=== PATIENT | male | born 1975 | race Caucasian/White ===

== ENCOUNTER 2017-10-05 21:06 | Observation (INO) | payer SELFPAY ==
[2017-10-05 22:08] LABS: BASOPHILS % (AUTO) 0.3 % (0.2-1.0); EOSINOPHILS # (AUTO) 0.1 x10^3/uL (0.0-0.2); EOSINOPHILS % (AUTO) 0.7 % (0.9-2.9); HEMATOCRIT 43.1 % (42.0-54.0); HEMOGLOBIN 15.1 g/dL (13.5-18.0); LYMPHOCYTES # (AUTO) 1.1 X10^3/uL (1.3-2.9); LYMPHOCYTES % (AUTO) 7.3 % (21.0-51.0); MEAN CORPUSCULAR HEMOGLOBIN 29.8 pg (27.0-34.0); MEAN CORPUSCULAR VOLUME 85.1 fL (80.0-100.0); MEAN PLATELET VOLUME 8.1 fL (7.4-11.0); MONOCYTES # (AUTO) 0.5 x10^3/uL (0.3-0.8); MONOCYTES % (AUTO) 3.6 % (0.0-13.0); NEUTROPHILS # (AUTO) 12.8 x10^3/uL (2.2-4.8); NEUTROPHILS % (AUTO) 88.1 % (42.0-75.0); PLATELET COUNT 209 X10^3/uL (150.0-450.0); RED BLOOD COUNT 5.07 X10^6/uL (4.7-6.0); RED CELL DISTRIBUTION WIDTH 12.8 % (11.6-16.5); WHITE BLOOD COUNT 14.5 X10^3/uL (3.6-10.0)
[2017-10-05 22:18] LABS: ALANINE AMINOTRANSFERASE 32 Units/L (12-78); ALBUMIN 4.1 g/dL (3.4-5.0); ALKALINE PHOSPHATASE 99 Units/L (46-116); AMYLASE 24 Units/L (25-115); ASPARTATE AMINO TRANSFERASE 20 Units/L (15-37); BLOOD UREA NITROGEN 19 mg/dL (7-18); CALCIUM 8.3 mg/dL (8.5-10.1); CARBON DIOXIDE 21.6 mmol/L (21-32); CHLORIDE 106 mmol/L (98-107); COR NA(FOR HYPERGLY) 142 mmol/L (136-145); CREATININE 1.32 mg/dL (0.70-1.30); LIPASE 132 Units/L (73-393); SODIUM 141 mmol/L (136-145); TOTAL PROTEIN 7.4 g/dL (6.4-8.2); eGFR BLACK RACES > 60 (>60); eGFR NON BLACK RACES > 60 (>60)
[2017-10-05] MEDS ORDERED: ZOSYN VIAL 3.375 GM IV ONE (22:28)
[2017-10-05] MEDS ORDERED: DEMEROL INJ ONE (22:29)
[2017-10-05] MEDS ORDERED: NS 100 ML IV + SPIKE MINIBAG* 100 ML IV ONE (22:30)
[2017-10-05 22:47] LABS: ERYTHROCYTE SEDIMENTATION RATE 2 MM/HOUR (0-15)
[2017-10-05 22:52] VITALS: BMI 38.5
[2017-10-05] MEDS: NS 1000 ML 1,000 ML IV SCH (22:54)
[2017-10-05] MEDS: DEMEROL INJ IVP PRN (22:55)
[2017-10-05] MEDS: PHENERGAN INJ 25 MG IV PRN (23:04)
[2017-10-05] MEDS: NICOTINE PATCH TD SCH (23:07)
[2017-10-05] MEDS: PROTONIX INJ 40 MG VIAL IVP SCH (23:09)
[2017-10-05] MEDS: PEPCID 20 MG IV PREMIX* 20 MG/50 ML BAG IV SCH (23:12)
[2017-10-05] MEDS ORDERED: NS 100 ML IV 100 ML IV ONE (23:48)
[2017-10-06] MEDS ORDERED: ZOFRAN INJ 4 MG VIAL IVP PRN (00:01)
--- NOTE | 2017-10-06 01:21 | CT ---
CT abdomen and pelvis with contrast Indication: Abdominal pain with nausea and vomiting Technique: Helical images through the abdomen and pelvis after IV contrast. Coronal and sagittal refo rmats provided. Comparison: No recent prior abdomen CT available. Findings: Limited images through the lower chest show prominent heart size. Review of bone windows sh ows spine and pelvis mild degenerative change without destructive osseous lesion. Abdomen: The liver, gallbladder, spleen, pancreas, adrenal glands, stomach and small bowel show no ac agdaagux abnormality. Postsurgical change of the stomach noted. The appendix is normal. Vasculature shows few calcifications. The kidneys are normal. Pelvis: Urinary bladder and rectum are normal. Prostate gland is normal. There is borderline wall thickening of the transverse and right colon. Impression: 1. Mild right colon and transverse colon wall thickening, suggesting mild colitis. 2. Prominent heart size with a few calcifications in the aorta. Reported By:
[2017-10-06] MEDS ORDERED: DEMEROL INJ ONE (03:01)
[2017-10-06] MEDS: DEMEROL INJ IVP PRN ×3 (03:15→20:39)
[2017-10-06 04:50] LABS: BILIRUBIN,URINE NEGATIVE (NEGATIVE); BLOOD/HEMOGLOBIN,URINE NEGATIVE (NEGATIVE); GLUCOSE, URINE NEGATIVE (NEGATIVE); KETONES,URINE NEGATIVE (NEGATIVE); LEUKOCYTE ESTERASE ,URINE NEGATIVE (NEGATIVE); NITRITES,URINE NEGATIVE (NEGATIVE); PH,URINE 6.5 (5.0 - 8.0); PROTEIN,URINE 1+ (NEGATIVE); UROBILINOGEN,URINE 1+ (NORMAL)
[2017-10-06 05:17] LABS: APPEARANCE,URINE CLEAR (CLEAR); COLOR,URINE YELLOW (YELLOW)
[2017-10-06 05:18] LABS: BACTERIA,URINE NEGATIVE /HPF (NEGATIVE); RBC,URINE NONE SEEN /HPF (NONE SEEN); SQUAMOUS EPITHELIAL CELL,UR RARE /HPF (NEGATIVE)
[2017-10-06 05:38] LABS: BASOPHILS % (AUTO) 0.3 % (0.2-1.0); EOSINOPHILS % (AUTO) 0.2 % (0.9-2.9); HEMATOCRIT 39.9 % (42.0-54.0); HEMOGLOBIN 13.9 g/dL (13.5-18.0); LYMPHOCYTES % (AUTO) 8.5 % (21.0-51.0); MEAN CORPUSCULAR HEMOGLOBIN 29.7 pg (27.0-34.0); MEAN CORPUSCULAR VOLUME 85.1 fL (80.0-100.0); MEAN PLATELET VOLUME 8.6 fL (7.4-11.0); MONOCYTES # (AUTO) 0.6 x10^3/uL (0.3-0.8); MONOCYTES % (AUTO) 5.3 % (0.0-13.0); NEUTROPHILS # (AUTO) 9.9 x10^3/uL (2.2-4.8); NEUTROPHILS % (AUTO) 85.7 % (42.0-75.0); PLATELET COUNT 194 X10^3/uL (150.0-450.0); RED BLOOD COUNT 4.68 X10^6/uL (4.7-6.0); WHITE BLOOD COUNT 11.6 X10^3/uL (3.6-10.0)
[2017-10-06 05:54] LABS: ALANINE AMINOTRANSFERASE 28 Units/L (12-78); ALBUMIN 3.5 g/dL (3.4-5.0); ALKALINE PHOSPHATASE 81 Units/L (46-116); ASPARTATE AMINO TRANSFERASE 16 Units/L (15-37); BLOOD UREA NITROGEN 18 mg/dL (7-18); CALCIUM 8.2 mg/dL (8.5-10.1); CARBON DIOXIDE 20.6 mmol/L (21-32); CHLORIDE 107 mmol/L (98-107); COR NA(FOR HYPERGLY) 141 mmol/L (136-145); SODIUM 141 mmol/L (136-145); TOTAL PROTEIN 6.8 g/dL (6.4-8.2); eGFR BLACK RACES > 60 (>60); eGFR NON BLACK RACES > 60 (>60)
[2017-10-06] MEDS ORDERED: DEMEROL INJ IVP ONE (06:04)
[2017-10-06] MEDS: PHENERGAN INJ 25 MG IV PRN ×3 (06:12→20:39)
[2017-10-06] MEDS: NS 1000 ML 1,000 ML IV SCH ×3 (06:24→22:13)
[2017-10-06] MEDS: ZOSYN VIAL 3.375 GM 3.375 GM in NS 100 ML IV + SPIKE MINIBAG* 100 ML IV SCH ×3 (06:25→22:13)
[2017-10-06] MEDS: PEPCID 20 MG IV PREMIX* 20 MG/50 ML BAG IV SCH ×2 (08:27→20:39)
[2017-10-06] MEDS: PROTONIX INJ 40 MG VIAL IVP SCH ×2 (08:28→20:38)
[2017-10-06] MEDS: NICOTINE PATCH TD SCH (08:29)
[2017-10-06] MEDS ORDERED: PATIENT'S HOME MEDICATION (Lisinopril [Lisinopril] 1 TAB) PO SCH (09:00)
[2017-10-06] MEDS: ZESTRIL TAB 10 MG PO SCH (09:33)
--- NOTE | 2017-10-06 10:23 | US ---
History: Abdominal pain and nausea and vomiting Study: Ultrasound of the right upper quadrant of the abdomen Comparison: None Findings: The gallbladder contains some sludge but there is no wall thickening or stone. The common h epatic duct measures 3.1 mm diameter. The liver is normal in size without mass. There is appropriate flow in the hepatic and portal veins. The right kidney measures 10 x 4 x 6 cm without mass or hydronephrosis. There is no free fluid. The IVC and pancreas are obscured by overlying gas. Impression: Some gallbladder sludge but no gallstone. Otherwise unremarkable exam. Reported By:
[2017-10-06] MEDS: SYNTHROID 125 mcg TAB PO SCH (10:31)
[2017-10-06] MEDS ORDERED: FIORICET TAB PO PRN (16:18)
--- NOTE | 2017-10-06 18:15 | DR.CONSULT ---
Consult - Consultation for Day of: Date: 10/06/17 - Chief Complaint Chief Complaint: Abdominal pain. - Allergies Allergies/Adverse Reactions: Allergies Allergy/AdvReac Type Severity Reaction Status Date / Time shellfish derived AdvReac Verified 10/05/17 22:23 - History of Present Illness History of Present Illness: The patient is a 42 year old male who began having right upper quadrant pain yesterday after eating ground beef. The pain was sudden and severe. (+) fever / chills. (+) nausea (-) vomiting. (+) melena. (-) hematemesis / hematochezia. The patient has a history of gastric sleeve performed at [facility]SH approximately 1 year ago. (-) f/h IBD. The patient was admitted to and work-up showed colitis. Today, the pain has resolved but Mr. Bryan reports fever/chills/headache. An abdominal u/s demonstrated sludge without evidence of cholecystitis. - Past Medical History Past Medical History: Dyslipidemia, Hypertension, Hypothyroidism Additional Medical History: KONG - Past Surgical History Surgical History: Ortho Surgery, Thyroidectomy, Weight Loss Surgery (Gastric sleeve), Other (Umbilical hernia repair with mesh) - Family History Family Medical History: Diabetes Mellitus, Coronary Artery Disease, Hypertension - Social History Does patient currently use any type of tobacco product: Yes Have you used tobacco products in the last 12 months: Yes Type of Tobacco Use: Cigarettes Alcohol Use: Occasionally Drug Use: None - Medications Home Medications: Acetaminophen with Codeine [Tylenol w/Codeine #4 (300 mg/60 mg)] 1 tab PO QID [History Confirmed 10/05/17] Levothyroxine Sodium [SYNTHROID 125 mcg *] 1 tab PO DAILY 10/05/17 [History Confirmed 10/05/17] Lisinopril 1 tab PO DAILY 10/05/17 [History Confirmed 10/05/17] - Review of Systems Constitutional: Fever, Chills, Weakness Eyes: No Symptoms Reported ENT: No Symptoms Reported Respiratory: No Symptoms Reported Cardiovascular: No Symptoms Reported Gastrointestinal: Nausea, Abdominal Pain, Melena Genitourinary: No Symptoms Reported Musculoskeletal: No Symptoms Reported Skin: No Symptoms Reported Neurological: No Symptoms Reported - Physical Exam Vital Signs: Temperature 98.6 F Pulse Rate [Right] 83 Respiratory Rate 22 Blood Pressure [Right Arm] 138/83 O2 Sat by Pulse Oximetry 97 Oriented: Normal Eyes: Normal Respiratory: Clear Throughout Cardiovascular: Normal : Normal Auscultation: Bowel Sounds: Increased Palpation: Normal, Other (Well healed laparoscopic and umbilical hernia repair scars.) Tenderness: Normal Skin: Normal Musculoskeletal: Normal Psychiatric: Normal Mood Description: Calm Affect: Normal Speech Pattern: Clear, Appropriate - Plan Plan: 42 year old male with resolving abdominal pain: 1. RUQ pain. Suspect colitis etiology of pain. Improved with bowel rest and antibiotics. (+) leukocystosis with left shift. On Zosyn. Await stool cultures. Continue IV abx. Slowly advance diet. The patient will need outpatient colonoscopy after symptoms improve. GI following. 2. Cholelithiasis. Asymptomatic at this time. NTTP RUQ and (-) Kilgore's sign. (-) DM. Patient reports RUQ intermittently with fatty foods. HIDA not performed due to weight. Recommend elective cholecystectomy if symptoms persist.
[2017-10-06] MEDS ORDERED: NS 1000 ML 1,000 ML IV ONE (18:16)
[2017-10-06 20:58] LABS: STOOL FOR WBC POSITIVE (NEGATIVE)
[2017-10-06 21:14] LABS: CRYPTOSPORIDIUM PARVUM ANTIGEN NEGATIVE (NEGATIVE); GIARDIA LAMBLIA ANTIGEN NEGATIVE (NEGATIVE)
[2017-10-07] MEDS: NS 1000 ML 1,000 ML IV SCH ×3 (02:19→10:11)
[2017-10-07] MEDS: DEMEROL INJ IVP PRN ×3 (02:19→10:11)
[2017-10-07 05:24] LABS: BASOPHILS # (AUTO) 0.1 X10^3/uL (0.0-0.1); BASOPHILS % (AUTO) 0.8 % (0.2-1.0); EOSINOPHILS # (AUTO) 0.1 x10^3/uL (0.0-0.2); EOSINOPHILS % (AUTO) 1.5 % (0.9-2.9); HEMATOCRIT 37.8 % (42.0-54.0); HEMOGLOBIN 13.2 g/dL (13.5-18.0); LYMPHOCYTES # (AUTO) 1.7 X10^3/uL (1.3-2.9); MEAN CORPUSCULAR HEMOGLOBIN 29.7 pg (27.0-34.0); MEAN CORPUSCULAR VOLUME 84.9 fL (80.0-100.0); MEAN PLATELET VOLUME 8.4 fL (7.4-11.0); MONOCYTES # (AUTO) 0.6 x10^3/uL (0.3-0.8); MONOCYTES % (AUTO) 10.6 % (0.0-13.0); NEUTROPHILS # (AUTO) 3.6 x10^3/uL (2.2-4.8); NEUTROPHILS % (AUTO) 59.1 % (42.0-75.0); PLATELET COUNT 169 X10^3/uL (150.0-450.0); RED BLOOD COUNT 4.46 X10^6/uL (4.7-6.0); RED CELL DISTRIBUTION WIDTH 12.8 % (11.6-16.5); WHITE BLOOD COUNT 6.1 X10^3/uL (3.6-10.0)
[2017-10-07 05:31] LABS: ALANINE AMINOTRANSFERASE 22 Units/L (12-78); ALKALINE PHOSPHATASE 67 Units/L (46-116); ASPARTATE AMINO TRANSFERASE 15 Units/L (15-37); BLOOD UREA NITROGEN 12 mg/dL (7-18); CALCIUM 7.9 mg/dL (8.5-10.1); CARBON DIOXIDE 23.3 mmol/L (21-32); CHLORIDE 110 mmol/L (98-107); COR CA(FOR HYPOALB) 8.7 mg/dL (8.5-10.1); CREATININE 1.25 mg/dL (0.70-1.30); SODIUM 143 mmol/L (136-145); TOTAL PROTEIN 6.1 g/dL (6.4-8.2); eGFR BLACK RACES > 60 (>60); eGFR NON BLACK RACES > 60 (>60)
[2017-10-07] MEDS: ZOSYN VIAL 3.375 GM 3.375 GM in NS 100 ML IV + SPIKE MINIBAG* 100 ML IV SCH (05:41)
[2017-10-07] MEDS: PROTONIX INJ 40 MG VIAL IVP SCH (08:02)
[2017-10-07] MEDS: ZESTRIL TAB 10 MG PO SCH (08:02)
[2017-10-07] MEDS: SYNTHROID 125 mcg TAB PO SCH (08:02)
[2017-10-07] MEDS: PEPCID 20 MG IV PREMIX* 20 MG/50 ML BAG IV SCH (08:02)
[2017-10-07] MEDS: NICOTINE PATCH TD SCH (08:04)
--- NOTE | 2017-10-07 08:42 | PCM.PROG ---
Progress Note - Progress Note for Day of Date: 10/07/17 - Subjective Subjective: Complains of body aches / headache. - Past Medical Family Social History Allergies: Allergies shellfish derived Adverse Reaction (Verified 10/05/17 22:23) - Vital Signs and I&O's Vital Signs: Temperature 98.2 F Pulse Rate [Right] 93 Respiratory Rate 18 Blood Pressure [Right Arm] 142/81 O2 Sat by Pulse Oximetry 96 Intake and Output: Intake & Output 10/04/17 10/05/17 10/06/17 10/07/17 11:59 11:59 11:59 11:59 Intake Total 125 3920 Balance 125 3920 - Physical Exam Oriented: Normal Eyes: Normal Cardiovascular: Normal : Normal Auscultation: Bowel Sounds: Increased Tenderness: Normal Skin: Normal Musculoskeletal: Normal Psychiatric: Normal Mood Description: Calm Affect: Normal Speech Pattern: Clear, Appropriate - Laboratory and Diagnostics Result Diagrams: 10/07/17 04:30 10/07/17 04:30 Labs: 10/05/17 21:55 Blood Blood Culture - Preliminary 10/05/17 21:49 Blood Blood Culture - Preliminary 10/06/17 19:39 Stool - Final Laboratory WBC 6.1 X10^3/uL (3.6-10.0) 10/07/17 04:30 RBC 4.46 X10^6/uL (4.7-6.0) L 10/07/17 04:30 Hgb 13.2 g/dL (13.5-18.0) L 10/07/17 04:30 Hct 37.8 % (42.0-54.0) L 10/07/17 04:30 MCV 84.9 fL (80.0-100.0) 10/07/17 04:30 MCH 29.7 pg (27.0-34.0) 10/07/17 04:30 MCHC 35.0 g/dL (33.0-35.0) 10/07/17 04:30 RDW 12.8 % (11.6-16.5) 10/07/17 04:30 Plt Count 169 X10^3/uL (150.0-450.0) 10/07/17 04:30 MPV 8.4 fL (7.4-11.0) 10/07/17 04:30 Neut % (Auto) 59.1 % (42.0-75.0) 10/07/17 04:30 Lymph % (Auto) 28.0 % (21.0-51.0) 10/07/17 04:30 [place] % (Auto) 10.6 % (0.0-13.0) 10/07/17 04:30 Eos % (Auto) 1.5 % (0.9-2.9) 10/07/17 04:30 Baso % (Auto) 0.8 % (0.2-1.0) 10/07/17 04:30 Neut # (Auto) 3.6 x10^3/uL (2.2-4.8) 10/07/17 04:30 Lymph # (Auto) 1.7 X10^3/uL (1.3-2.9) 10/07/17 04:30 [place] # (Auto) 0.6 x10^3/uL (0.3-0.8) 10/07/17 04:30 Eos # (Auto) 0.1 x10^3/uL (0.0-0.2) 10/07/17 04:30 Baso # (Auto) 0.1 X10^3/uL (0.0-0.1) 10/07/17 04:30 Absolute Nucleated RBC 0.1 /100WBC 10/07/17 04:30 ESR 2 MM/HOUR (0-15) 10/05/17 21:49 Sodium 143 mmol/L (136-145) 10/07/17 04:30 Corrected Sodium TNP 10/07/17 04:30 Potassium 3.9 mmol/L (3.5-5.1) 10/07/17 04:30 Chloride 110 mmol/L (98-107) H 10/07/17 04:30 Carbon Dioxide 23.3 mmol/L (21-32) 10/07/17 04:30 BUN 12 mg/dL (7-18) 10/07/17 04:30 Creatinine 1.25 mg/dL (0.70-1.30) 10/07/17 04:30 Est GFR (MDRD) Af Amer > 60 (>60) 10/07/17 04:30 Est GFR (MDRD) Non-Af > 60 (>60) 10/07/17 04:30 Glucose 90 mg/dL (65-99) 10/07/17 04:30 Calcium 7.9 mg/dL (8.5-10.1) L 10/07/17 04:30 Corrected Calcium 8.7 mg/dL (8.5-10.1) 10/07/17 04:30 Total Bilirubin 0.50 mg/dL (0.2-1.0) 10/07/17 04:30 AST 15 Units/L (15-37) 10/07/17 04:30 ALT 22 Units/L (12-78) 10/07/17 04:30 Alkaline Phosphatase 67 Units/L (46-116) 10/07/17 04:30 C-Reactive Protein 28.00 mg/L (0-3.0) H 10/05/17 21:49 Total Protein 6.1 g/dL (6.4-8.2) L 10/07/17 04:30 Albumin 3.0 g/dL (3.4-5.0) L 10/07/17 04:30 Globulin 3.1 g/dL (2.5-4.5) 10/07/17 04:30 Albumin/Globulin Ratio 1.0 Ratio (1.1-2.1) L 10/07/17 04:30 Amylase 24 Units/L (25-115) L 10/05/17 21:49 Lipase 132 Units/L (73-393) 10/05/17 21:49 Specimen Type Clean catch urine 10/06/17 04:28 Urine Color Yellow (YELLOW) 10/06/17 04:28 Urine Appearance Clear (CLEAR) 10/06/17 04:28 Urine pH 6.5 (5.0 - 8.0) 10/06/17 04:28 Ur Specific [place] 1.010 (1.000-1.030) 10/06/17 04:28 Urine Protein 1+ (NEGATIVE) 10/06/17 04:28 Urine Glucose (UA) Negative (NEGATIVE) 10/06/17 04:28 Urine Ketones Negative (NEGATIVE) 10/06/17 04:28 Urine Occult Blood Negative (NEGATIVE) 10/06/17 04:28 Urine Nitrite Negative (NEGATIVE) 10/06/17 04:28 Urine Bilirubin Negative (NEGATIVE) 10/06/17 04:28 Urine Urobilinogen 1+ (NORMAL) 10/06/17 04:28 Ur Leukocyte Esterase Negative (NEGATIVE) 10/06/17 04:28 Urine RBC None seen /HPF (NONE SEEN) 10/06/17 04:28 Urine WBC None seen /HPF (NONE SEEN) 10/06/17 04:28 Ur Squamous Epith Cells Rare /HPF (NEGATIVE) 10/06/17 04:28 Urine Bacteria Negative /HPF (NEGATIVE) 10/06/17 04:28 Ur Culture Indicated? No/not indicated 10/06/17 04:28 Stool Description 50g brn lqd 10/06/17 19:39 Stl Occult Blood (IFOB) Positive (NEGATIVE) A 10/06/17 19:39 Stool for White Cells Positive (NEGATIVE) A 10/06/17 19:39 Stl C. diff Tox B Gene Negative (NEGATIVE) 10/06/17 19:39 Stl C. diff [id number] Negative (NEGATIVE) 10/06/17 19:39 Cryptosporid parvum Ag Negative (NEGATIVE) 10/06/17 19:39 E. histolytica Antigen Negative (NEGATIVE) 10/06/17 19:39 Giardia lamblia Ag Negative (NEGATIVE) 10/06/17 19:39 Influenza Type A (PCR) Negative (NEGATIVE) 10/05/17 22:30 Influenza Type B (PCR) Negative (NEGATIVE) 10/05/17 22:30 - Plan (1) Colitis Status: Acute Narrative Support Text: WBC improved. Abdominal pain resolved. Stool cultures pending. Blood and WBC noted in stool. Plan: Transition to PO antibiotics. Await stool cultures. Adv. diet as tolerated. Needs f/u colonoscopy. GI following.
--- NOTE | 2017-10-07 10:38 | DR.CONSULT ---
Consult - Consultation for Day of: Date: 10/06/17 - Chief Complaint Chief Complaint: Carson referred for RUQ and melena. Patient with complaints of RUQ, N/V and melena - Allergies Allergies/Adverse Reactions: Allergies Allergy/AdvReac Type Severity Reaction Status Date / Time shellfish derived AdvReac Verified 10/05/17 22:23 - History of Present Illness History of Present Illness: Carson is a 72yo male who was referred for RUQ and melena. Patient with complaints of RUQ N/V and melena that started on Tuesday. Patient denies dysphagia, dyspepsia, constipation, diarrhea and hematochezia. Abdomen and pelvis CT with contrast showed Mild right colon and transverse colon wall thickening suggesting mild colitis. Gall bladder US showed sludge in the gall bladder. Patient had gastric sleeve done november of last year. He has never had a colonoscopy or EGD - Past Medical History Past Medical History: Dyslipidemia, Hypertension, Hypothyroidism Additional Medical History: KONG - Past Surgical History Surgical History: Ortho Surgery, Thyroidectomy, Weight Loss Surgery (Gastric sleeve), Other (Umbilical hernia repair with mesh) - Family History Family Medical History: Diabetes Mellitus, Coronary Artery Disease, Hypertension - Social History Does patient currently use any type of tobacco product: Yes Have you used tobacco products in the last 12 months: Yes Type of Tobacco Use: Cigarettes Alcohol Use: Occasionally Drug Use: None - Medications Home Medications: Acetaminophen with Codeine [Tylenol w/Codeine #4 (300 mg/60 mg)] 1 tab PO QID [History Confirmed 10/05/17] Levothyroxine Sodium [SYNTHROID 125 mcg *] 1 tab PO DAILY 10/05/17 [History Confirmed 10/05/17] Lisinopril 1 tab PO DAILY 10/05/17 [History Confirmed 10/05/17] - Review of Systems Constitutional: No Symptoms Reported Eyes: No Symptoms Reported ENT: No Symptoms Reported Respiratory: No Symptoms Reported Cardiovascular: No Symptoms Reported Gastrointestinal: See HPI, Nausea, Vomiting, Abdominal Pain (ruq), Melena Genitourinary: No Symptoms Reported Musculoskeletal: No Symptoms Reported Skin: No Symptoms Reported Neurological: No Symptoms Reported - Physical Exam Vital Signs: Temperature 98.2 F Pulse Rate [Right] 93 Respiratory Rate 18 Blood Pressure [Right Arm] 142/81 O2 Sat by Pulse Oximetry 96 Oriented: Normal Eyes: Normal Ear: Normal Nose: Normal Throat: Normal Respiratory: Clear Throughout Cardiovascular: Normal : Normal Auscultation: Bowel Sounds: Normal Palpation: Normal, Other (no distention). negative: Spleen Enlarged, Liver Enlarged, Mass Pulsatile Tenderness: RUQ Skin: Normal Musculoskeletal: Normal Psychiatric: Normal Mood Description: Calm Affect: Normal Speech Pattern: Clear - Plan Plan: Assessment. 1. N/V, RUQ pain likely gastroenteritis r/o gastric ulcer gastric adenocarcinoma. 2. Melena r/o GI Bleed. Plan. 1. Protonix IV EGD as outpatient. 2. Monitor Hgb protonix IV, hemoccult stool. Plan reviewed with Dr. Vargas
[2017-10-07 12:11] VITALS: BP 122/64
== END 2017-10-07 14:00 | disposition home or self-care (01) ==
LOC: MED/SURG 21:06 → UNDOADMOB 21:06 → MED/SURG 21:40
PROVIDERS: ADMIT Internal Medicine; ATTEND Internal Medicine
DX: R10.11 Right upper quadrant pain (principal); K52.89 Other specified noninfective gastroenteritis and colitis; K92.2 Gastrointestinal hemorrhage, unspecified; Z98.84 Bariatric surgery status
CPT/HCPCS: 36415; 74177; 76705; 80053; 81001; 82150; 82274; 83630; 83690; 85025; 85652; 86140; 87040; 87045; 87328; 87329; 87336; 87427; 87449; 87493; 87502; A4216; A4222; C9113; S0028; G0378; J2175; J2405; J2543; J2550

== ENCOUNTER 2022-02-05 16:29 | Inpatient (IN) ==
[2022-02-05] MEDS ORDERED: TORADOL 30 MG VIAL ONE (16:53)
[2022-02-05] MEDS ORDERED: NS 1,000 ML IV 1,000 ML ONE ×3 (16:53→21:34)
[2022-02-05] MEDS ORDERED: ZOFRAN INJ 4 MG VIAL ONE (16:53)
[2022-02-05] MEDS ORDERED: TORADOL 30 MG VIAL IVP ONE (16:54)
[2022-02-05] MEDS ORDERED: ZOFRAN INJ 4 MG VIAL IVP ONE (16:54)
[2022-02-05] MEDS ORDERED: NS 1,000 ML IV 1,000 ML IV ONE ×2 (16:54→19:06)
[2022-02-05 17:05] LABS: BILIRUBIN,URINE NEGATIVE (NEGATIVE); BLOOD/HEMOGLOBIN,URINE NEGATIVE (NEGATIVE); GLUCOSE, URINE 4+ (NEGATIVE); KETONES,URINE 4+ (NEGATIVE); LEUKOCYTE ESTERASE ,URINE NEGATIVE (NEGATIVE); NITRITES,URINE NEGATIVE (NEGATIVE); PROTEIN,URINE 2+ (NEGATIVE); UROBILINOGEN,URINE NORMAL (NORMAL)
[2022-02-05 17:08] LABS: BASOPHILS % (AUTO) 0.2 % (0.2-1.0); EOSINOPHILS % (AUTO) 0.1 % (0.9-2.9); HEMATOCRIT 41.7 % (42.0-54.0); HEMOGLOBIN 14.1 g/dL (13.5-18.0); LYMPHOCYTES # (AUTO) 1.4 X10^3/uL (1.3-2.9); LYMPHOCYTES % (AUTO) 7.1 % (21.0-51.0); MEAN CORPUSCULAR HEMOGLOBIN 29.2 pg (27.0-34.0); MEAN CORPUSCULAR HGB CONC 33.9 g/dL (33.0-35.0); MEAN CORPUSCULAR VOLUME 85.9 fL (80.0-100.0); MEAN PLATELET VOLUME 8.4 fL (7.4-11.0); MONOCYTES # (AUTO) 2.1 x10^3/uL (0.3-0.8); MONOCYTES % (AUTO) 10.6 % (0.0-13.0); NEUTROPHILS # (AUTO) 16.4 x10^3/uL (2.2-4.8); RED BLOOD COUNT 4.85 X10^6/uL (4.7-6.0); RED CELL DISTRIBUTION WIDTH 14.9 % (11.6-16.5)
[2022-02-05 17:21] LABS: APPEARANCE,URINE SLIGHTLY HAZY (CLEAR); COLOR,URINE YELLOW (YELLOW); RBC,URINE NONE SEEN /HPF (0-3)
[2022-02-05 17:22] LABS: BACTERIA,URINE NEGATIVE /HPF (NEGATIVE); COARSE GRANULAR CASTS,URINE RARE /HPF (NEGATIVE); SQUAMOUS EPITHELIAL CELL,UR RARE /HPF (NEGATIVE)
[2022-02-05 17:24] LABS: ALANINE AMINOTRANSFERASE 26 Units/L (12-78); ALBUMIN 2.6 g/dL (3.4-5.0); ALKALINE PHOSPHATASE 122 Units/L (46-116); ASPARTATE AMINO TRANSFERASE 17 Units/L (15-37); BLOOD UREA NITROGEN 16 mg/dL (7-18); CALCIUM 8.7 mg/dL (8.5-10.1); CARBON DIOXIDE 22.5 mmol/L (21-32); CHLORIDE 92 mmol/L (98-107); COR CA(FOR HYPOALB) 9.8 mg/dL (8.5-10.1); COR NA(FOR HYPERGLY) 133 mmol/L (136-145); CREATININE 1.13 mg/dL (0.70-1.30); SODIUM 126 mmol/L (136-145); TOTAL PROTEIN 6.9 g/dL (6.4-8.2); eGFR NON BLACK RACES > 60 (>60)
--- NOTE | 2022-02-05 17:32 | CT ---
HISTORYPT C/O PAIN INTO THE LEFT LOWER BACK THAT IS CONSTANT STABBING PAINSTUDYABDOMEN/PELVIS W/O CONCOMPARISONNoneTECHNIQUECT of the abdomen and pelvis obtained without IV contrast. Study limited due to lack of IV contrast dose reduction techniques including Automated Exposure Control (AEC) and adjustment of mA and kV were utilized.FINDINGSTrace left-sided effusion and left basilar consolidation versus atelectasis.No acute osseous abnormality.The liver, gallbladder, pancreas, bilateral adrenal glands, and bilateral kidneys demonstrate no acute process. Heterogeneous splenic attenuation and perisplenic edemaNo evidence of bowel obstruction. The appendix is unremarkable.The bladder is unremarkable. No free air or fluid. Nonaneurysmal aorta. Faint scattered vascular calcifications.IMPRESSIONHeterogeneous splenic attenuation with perisplenic edema. Findings may be seen splenic infection or infarct. Recommend correlation with lab values. Contrast CT may be helpful in diagnosis.Trace left pleural effusion and left basilar consolidation versus atelectasis.Electronically signed by: LORA DIEZ (Feb 05, 2022 17:29:58)
--- NOTE | 2022-02-05 17:42 | DR.HYPOGLY ---
HPI Time Seen Time Seen by Provider: 02/05/22 17:26 PCP Primary Care Physician: DESTINY CRAMER Complaint Chief Complaint Doctors Comments: 3 DAY H/O POLYURIA,NAUSEA AND VOMITING AND LEFT LOWER BACK PAIN. RECENTLY BEGAN TREATMENT FOR NIDDM. HAS H/O KIDNEY STONES. Chief Complaint:: PT HAS RECENTLY BEEN DIAGNOSED WITH TYPE 2 DIABETES AND SINCE TUESDAY HIS GLUCOSE HAS BEEN STEADILY RISING. PT STATES THAT BLOOD SUGAR IS >500. PT C/O PAIN INTO THE LEFT LOWER BACK THAT IS CONSTANT STABBING PAIN Self Treatment fo Chief Complaint: PT WAS STARTED ON GLIMEPIRIDE 4MG PO BID AND GLUCOPHAGE 500MG PO HS ON TUESDAY Source History Provided: Patient Mode of Arrival Mode of Arrival: Ambulatory Timing Onset of Chief Complaint: 02/05/22 PMH PMH Past Medical History: Yes Past Medical History: Diabetes and Hypertension Past Surgical History: Yes Surgical History: Ortho Surgery and Thyroidectomy Past Surgical History Comment: GASTRIC SLEEVE Family History History of Family Medical Conditions: Yes Family Medical History: Diabetes Mellitus Social History Does patient currently use any type of tobacco product: Yes Have you used tobacco products in the last 12 months: Yes Type of Tobacco Use: Cigarettes Does any household member use tobacco: No Alcohol Use: None Do you use any recreational Drugs:: No Lives With: Family Lives Where: Home Infectious screening In the last 2 months have you had wt loss of >10#?: NO Have you had fever, night sweats or hemotysis?: No Have you traveled outside the country in the last 6 months?: No Isolation: Standard ROS Review of Systems Constitutional: Other (NAUSEA,VOMITING,POLYURIA AND LEFT LOWER BACK PAIN.) Eyes: No Symptoms Reported ENTM: No Symptoms Reported Respiratoy: No Symptoms Reported Cardiovascular: No Symptoms Reported Gastrointestinal/Abdominal: Abdominal Pain, Nausea and Vomiting Genitourinary: No Symptoms Reported Neurological: No Symptoms Reported Musculoskeletal: Back Pain Integumentary: No Symptoms Reported Hematologic/Lymphatic: No Symptoms Reported Endocrine: Increased Thirst and Other (POLYURIA) Psychiatric: No Symptoms Reported PE Vital Signs Vitals: Temperature 97.7 F Pulse Rate 119 Respiratory Rate 18 Blood Pressure [Right Arm] 122/64 Blood Pressure 146/87 O2 Sat by Pulse Oximetry 95 General Limitations: No Limitations General Appearance: Lethargic and In Distress (MODERATE DISTRESS) Eyes Eye exam: Normal Appearance, PERRL and EOMI Pupils: Regular, Round: Bilateral and Reactive: Bilateral ENT ENT Exam: Normal Exam and Normal Oropharynx Nose Exam: Normal Nose Exam Mouth Exam: Normal Inspection Throat Exam: Normal Inspection Neck Neck Exam: Normal Inspection and Full ROM Chest Chest Inspection: Normal Inspection and Symmetric Chest Wall Rise Respiratory Respiratory Exam: Normal Lung Sounds Bilat Cardiovascular Cardiovascular Exam: Regular Rate and Normal Rhythm Abdominal Exam Abdominal Exam: Normal Inspection, Normal Bowel Sounds and Soft Extremities Extremities Exam: Normal Inspection and Full ROM Back Back Exam: Tenderness (TENDER IN LEFT LOWER BACK) Neurologic Neurological Exam: Alert Patient Oriented To: Person, Place and Time Speech: Fluid Speech Cranial Nerve Exam: EOM Function (II, III, IV, ): Normal, Facial Sensation (V): Normal, Facial Palsy (VII): Normal, Gag reflex (XI): Normal, Spinal Accessory Function (XI): Normal and Tongue Deviation: Normal Psychiatric Psychiatric Exam: Normal Affect and Normal Mood Skin Skin Exam: Warm, Dry and Intact MDM Differential diagnosis Differential diagnosis: Hypoglycemia (HYPERGLYCEMIA.UTI,KIDNEY STONES ,DEHYDRATION) COURSE Treatment Treatment: PATIENT REMAINED RELATIVELY STABLE DURING ER EVALUATION. HAD BLOOD SUGAR OF 398 DURING LAB EVALUATION AND HAC 4+ GLUCOSE AND KETONES IN URINE. HAD [address] WBC ON CBC AND HAD CT OF ABDOMEN AND PELVIS THAT SHOWEDHETEROGENOUS SPLENIC ATTENUATION WITH PERISPLENIC EDEMA. FINDINGS MAY BE SEEN IN SPLENIC INFECTIONS OR INFARCT. THEY SUGGEST THAT CT OF ABDOMEN WITH CONTRAST MIGHT HELP FURTHER DELINIATE ANGELIKA PATIENT IS ALLERGIC TO IV CONTRAST. PATIENT WAS GIVEN 2 LITERS OF NACL BOLUS AND INITIALLY TORADOL 30MG IV FOR PAIN AND THEN 2MG OF MSO4 AND 4MG OF ZOFRAN IV FOR NAUSEA. PATIENT WAS DISCUSSED WITH DR LUDWIG AND SHE ACCEPTED THE PATIENT FOR ADMISSION. THE PATIENT WAS DISCUSSED WITH UTILIZATION REVIEW AND WILL BE ADMITTED INPATIENT. FOR FURTHER EVALUATION OF HYPERGLYCEMIA,LEUCOCYTOSIS AND PERISPLENIC EDEMA. PATIENT WAS ADVISED OF THE INTENT TO ADMIT AND WAS AGREABLE TO THE ADMISSION. PATIENT WAS ALSO GIVEN ZOSYN 3.375GRAMS IV IN ER. ROR Labs Reviewed Laboratory Results Reviewed?: Yes Result Diagrams: 02/05/22 16:49 02/05/22 20:25 Laboratory: WBC 20.0 X10^3/uL (3.6-10.0) H 02/05/22 16:49 RBC 4.85 X10^6/uL (4.7-6.0) 02/05/22 16:49 Hgb 14.1 g/dL (13.5-18.0) 02/05/22 16:49 Hct 41.7 % (42.0-54.0) L 02/05/22 16:49 MCV 85.9 fL (80.0-100.0) 02/05/22 16:49 MCH 29.2 pg (27.0-34.0) 02/05/22 16:49 MCHC 33.9 g/dL (33.0-35.0) 02/05/22 16:49 RDW 14.9 % (11.6-16.5) 02/05/22 16:49 Plt Count 254 X10^3/uL (150.0-450.0) 02/05/22 16:49 MPV 8.4 fL (7.4-11.0) 02/05/22 16:49 Neut % (Auto) 82.0 % (42.0-75.0) H 02/05/22 16:49 Lymph % (Auto) 7.1 % (21.0-51.0) L 02/05/22 16:49 [place] % (Auto) 10.6 % (0.0-13.0) 02/05/22 16:49 Eos % (Auto) 0.1 % (0.9-2.9) L 02/05/22 16:49 Baso % (Auto) 0.2 % (0.2-1.0) 02/05/22 16:49 Neut # (Auto) 16.4 x10^3/uL (2.2-4.8) H 02/05/22 16:49 Lymph # (Auto) 1.4 X10^3/uL (1.3-2.9) 02/05/22 16:49 [place] # (Auto) 2.1 x10^3/uL (0.3-0.8) H 02/05/22 16:49 Eos # (Auto) 0.0 x10^3/uL (0.0-0.2) 02/05/22 16:49 Baso # (Auto) 0.0 X10^3/uL (0.0-0.1) 02/05/22 16:49 Absolute Nucleated RBC 0.0 /100WBC 02/05/22 16:49 Sodium 126 mmol/L (136-145) L 02/05/22 16:49 Corrected Sodium 133 mmol/L (136-145) L 02/05/22 16:49 Potassium 3.8 mmol/L (3.5-5.1) 02/05/22 16:49 Chloride 92 mmol/L (98-107) L 02/05/22 16:49 Carbon Dioxide 22.5 mmol/L (21-32) 02/05/22 16:49 BUN 16 mg/dL (7-18) 02/05/22 16:49 Creatinine 1.13 mg/dL (0.70-1.30) 02/05/22 16:49 Est GFR (MDRD) Af Amer > 60 (>60) 02/05/22 16:49 Est GFR (MDRD) Non-Af > 60 (>60) 02/05/22 16:49 Glucose 408 mg/dL (65-99) H 02/05/22 20:25 POC Glucose (mg/dL) 398 mg/dL (65-99) H 02/05/22 16:39 Lactic Acid 1.3 mmol/L (0.4-2.0) 02/05/22 19:15 Calcium 8.7 mg/dL (8.5-10.1) 02/05/22 16:49 Corrected Calcium 9.8 mg/dL (8.5-10.1) 02/05/22 16:49 Total Bilirubin 0.80 mg/dL (0.2-1.0) 02/05/22 16:49 AST 17 Units/L (15-37) 02/05/22 16:49 ALT 26 Units/L (12-78) 02/05/22 16:49 Alkaline Phosphatase 122 Units/L (46-116) H 02/05/22 16:49 Total Protein 6.9 g/dL (6.4-8.2) 02/05/22 16:49 Albumin 2.6 g/dL (3.4-5.0) L 02/05/22 16:49 Globulin 4.3 g/dL (2.5-4.5) 02/05/22 16:49 Albumin/Globulin Ratio 0.6 Ratio (1.1-2.1) L 02/05/22 16:49 Specimen Type Clean catch urine 02/05/22 17:00 Urine Color Yellow (YELLOW) 02/05/22 17:00 Urine Appearance Slightly hazy (CLEAR) 02/05/22 17:00 Urine pH 6.0 (5.0 - 8.0) 02/05/22 17:00 Ur Specific [place] 1.015 (1.000-1.030) 02/05/22 17:00 Urine Protein 2+ (NEGATIVE) 02/05/22 17:00 Urine Glucose (UA) 4+ (NEGATIVE) 02/05/22 17:00 Urine Ketones 4+ (NEGATIVE) 02/05/22 17:00 Urine Blood Negative (NEGATIVE) 02/05/22 17:00 Urine Nitrite Negative (NEGATIVE) 02/05/22 17:00 Urine Bilirubin Negative (NEGATIVE) 02/05/22 17:00 Urine Urobilinogen Normal (NORMAL) 02/05/22 17:00 Ur Leukocyte Esterase Negative (NEGATIVE) 02/05/22 17:00 Urine RBC None seen /HPF (0-3) 02/05/22 17:00 Urine WBC 0-2 /HPF (0-5) 02/05/22 17:00 Ur Squamous Epith Cells Rare /HPF (NEGATIVE) 02/05/22 17:00 Urine Bacteria Negative /HPF (NEGATIVE) 02/05/22 17:00 Coarse Granular Casts Rare /HPF (NEGATIVE) 02/05/22 17:00 Urine Mucus Rare /HPF (NEGATIVE) 02/05/22 17:00 Ur Culture Indicated? No/not indicated 02/05/22 17:00 Acetone, Semi-Quant Small (NEGATIVE) H 02/05/22 16:49 Opioid Opioid Risk Tool Age (Valeriy box if 16-45): No History of Preadolescent Sexual Abuse: No Total: 0 Total Score Risk Category: Low Risk Copyright: Patrick LOZANO predicting aberrant behaviors Discharge Plan Diagnosis Discharge Problem: Leucocytosis, Hyperglycemia, Dehydration, Splenic disorder Discharge Plan Patient Disposition: ADMITTED INPATIENT Condition: Stable Health Concerns: Post Hospitalization: new medications and changes needed to prevent readmission or further decline. Pt educated and given instructions on all concerns. Plan of Treatment: Continue with present treatment and follow up plan. Pt is to keep follow up geremias ointment as instructed and take medications as ordered. Orders to Discharge Patient Discharge Orders: Transfer (Routine); Ordered 02/05/22 Ordered By: Warner Horace Follow ups/Referrals Follow ups/Referrals: JANIS GIRALDO [Primary Care Provider] - 3 days Instructions Stand Alone Forms: Precautions for COVID19, [facility], Patient Portal, Social Distancing
[2022-02-05] MEDS ORDERED: MORPHINE SULFATE INJ 2 MG INJ IVP ONE (20:16)
[2022-02-05] MEDS ORDERED: MORPHINE SULFATE INJ 2 MG INJ ONE (20:18)
[2022-02-05] MEDS ORDERED: ZOSYN VIAL 2.25 GRAMS 2.25 G in NS 100 ML IV 100 ML IV SCH (20:35)
[2022-02-05] MEDS ORDERED: ZOSYN VIAL 3.375 GRAMS IV ONE (21:34)
[2022-02-05] MEDS ORDERED: NS 100 ML IV 100 ML ONE (21:34)
[2022-02-05] MEDS ORDERED: NovoLIN R (or HumuLIN R) ONE (21:42)
[2022-02-05] MEDS: NovoLIN R (or HumuLIN R) SUBCUT PRN (21:53)
[2022-02-05] MEDS: ZOSYN VIAL 3.375 GRAMS 3.375 G in NS 100 ML IV 100 ML IV SCH ×2 (21:55→23:22)
[2022-02-05] MEDS ORDERED: NS 1,000 ML IV 1,000 ML IV SCH ×2 (22:00→23:00)
[2022-02-05] MEDS ORDERED: ZOFRAN INJ 4 MG VIAL IVP PRN (22:27)
[2022-02-05 22:45] LABS: AMYLASE 16 Units/L (25-115); LIPASE 134 Units/L (73-393)
[2022-02-05] MEDS: NICOTINE PATCH TD SCH (23:46)
[2022-02-05] MEDS: MORPHINE SULFATE INJ 2 MG INJ IVP PRN (23:47)
[2022-02-06] MEDS: PROTONIX INJ 40 MG VIAL IVP SCH (00:06)
[2022-02-06] MEDS ORDERED: NORCO 5/325 MG TAB ONE (02:27)
[2022-02-06] MEDS: NORCO 5/325 MG TAB PO PRN ×4 (02:31→14:25)
[2022-02-06 02:50] LABS: WHITE BLOOD COUNT 17.2 X10^3/uL (3.6-10.0)
[2022-02-06 02:53] LABS: BASOPHILS % (AUTO) 0.2 % (0.2-1.0); EOSINOPHILS % (AUTO) 0.3 % (0.9-2.9); HEMATOCRIT 38.5 % (42.0-54.0); HEMOGLOBIN 13.2 g/dL (13.5-18.0); LYMPHOCYTES # (AUTO) 1.7 X10^3/uL (1.3-2.9); LYMPHOCYTES % (AUTO) 9.8 % (21.0-51.0); MEAN CORPUSCULAR HEMOGLOBIN 29.4 pg (27.0-34.0); MEAN CORPUSCULAR HGB CONC 34.4 g/dL (33.0-35.0); MEAN CORPUSCULAR VOLUME 85.6 fL (80.0-100.0); MEAN PLATELET VOLUME 8.3 fL (7.4-11.0); MONOCYTES # (AUTO) 1.9 x10^3/uL (0.3-0.8); MONOCYTES % (AUTO) 11.3 % (0.0-13.0); NEUTROPHILS # (AUTO) 13.4 x10^3/uL (2.2-4.8); NEUTROPHILS % (AUTO) 78.4 % (42.0-75.0); RED CELL DISTRIBUTION WIDTH 14.9 % (11.6-16.5)
[2022-02-06 03:01] LABS: ALANINE AMINOTRANSFERASE 24 Units/L (12-78); ALBUMIN 2.4 g/dL (3.4-5.0); ALKALINE PHOSPHATASE 123 Units/L (46-116); ASPARTATE AMINO TRANSFERASE 15 Units/L (15-37); BLOOD UREA NITROGEN 16 mg/dL (7-18); CALCIUM 8.4 mg/dL (8.5-10.1); CARBON DIOXIDE 25.1 mmol/L (21-32); CHLORIDE 98 mmol/L (98-107); COR CA(FOR HYPOALB) 9.7 mg/dL (8.5-10.1); COR NA(FOR HYPERGLY) 136 mmol/L (136-145); CREATININE 1.33 mg/dL (0.70-1.30); SODIUM 131 mmol/L (136-145); TOTAL PROTEIN 6.4 g/dL (6.4-8.2); eGFR NON BLACK RACES > 60 (>60)
[2022-02-06] MEDS: NovoLIN R (or HumuLIN R) SUBCUT PRN ×5 (03:08→21:38)
[2022-02-06] MEDS: ZANAFLEX PO PRN ×3 (03:25→23:03)
[2022-02-06] MEDS: ZOSYN VIAL 3.375 GRAMS 3.375 G in NS 100 ML IV 100 ML IV SCH ×3 (05:40→21:01)
[2022-02-06] MEDS: MORPHINE SULFATE INJ 2 MG INJ IVP PRN (06:03)
[2022-02-06] MEDS: NS 1,000 ML IV 1,000 ML IV SCH ×3 (08:21→23:03)
[2022-02-06] MEDS: NICOTINE PATCH TD SCH (08:22)
[2022-02-06] MEDS ORDERED: GLUCOPHAGE XR 24-HR PO SCH (11:00)
[2022-02-06] MEDS ORDERED: DILAUDID INJ ONE (11:01)
[2022-02-06] MEDS: DILAUDID INJ IVP PRN ×3 (11:05→20:59)
[2022-02-06] MEDS: FLOMAX PO SCH (11:21)
[2022-02-06] MEDS: AMARYL TAB 4 MG PO SCH (11:21)
[2022-02-06] MEDS: ZESTRIL TAB 40 MG PO SCH (11:21)
--- NOTE | 2022-02-06 11:56 | DR.H&P ---
H&P History & Physical for Day of: H&P Date: 02/06/22 Chief Complaint Chief Complaint: low back pain, nausea/vomiting Allergies Allergies Allergy/AdvReac Type Severity Reaction Status Date / Time shellfish derived AdvReac Verified 10/05/17 22:23 History of Present Illness History of Present Illness: Mr Bryan is a 47y/o male with a PMH of diabetes and HTN. He presented with worsening left lower back pain, nausea and vomiting. He reports symptoms present since last week. His left flank pain has been worsening. He was recently diagnosed with diabetes 2 weeks ago and started on metformin and glipizide. He states his FSBG have been > 500 for the past few days. Patient states his pain has not been controlled with morphine. He is not able to provide a detailed history due to being in severe pain during exam. Patient constantly asking to switch his medicine. CTAP was done without contrast which showed possible splenic edema or infarction. CTAP with contrast is recommended. Patient reports having allergy to shellfish but has had IV contrast in the past before with no reaction. Denies hx of anaphylaxis. Labs/imaging reviewed Glucose: 257 UA: 4+ ketones Serum acetone + BUN/Cr: 16/1.33 WBC 17.2 Plan: will DC morphine and switch to Dilaudid prn. Order CTAP with contrast stat to evaluate further. Continue IV fluids, anti-emetics and pain control. Continue IV zosyn. Resume home medications, continue SSI for hyperglycemia. Advance diet as tolerated. Monitor AM labs/imaging. Past Medical History Past Medical History: Diabetes and Hypertension Additional Medical History: KONG Past Surgical History Surgical History: Ortho Surgery and Thyroidectomy Family History Family Medical History: Diabetes Mellitus, Heart Failure and Hypertension Social History Does patient currently use any type of tobacco product: Yes Have you used tobacco products in the last 12 months: Yes Type of Tobacco Use: Cigarettes Does any household member use tobacco: No Alcohol Use: None Drug Use: None Medications Home Medications: shellfish derived Adverse Reaction (Verified 10/05/17 22:23) CONTINUE taking the following medications glimepiride 4 mg tablet 1 tab PO QDAY 02/05/22 [History] lisinopril 40 mg tablet (Zestril) 1 tab PO QDAY 02/05/22 [History] metformin 500 mg tablet,extended release 24 hr 1 tab PO QDAY 02/05/22 [History] tadalafil 10 mg tablet (Cialis) 10 mg PO DAILY PRN 02/05/22 [History] tamsulosin 0.4 mg capsule (Flomax) 1 cap PO QDAY 02/05/22 [History] testosterone cypionate 200 mg/mL intramuscular oil (Depo-Testosterone) 200 ml IM WEEKLY 02/05/22 [History] Labs Result Diagrams: 02/06/22 02:37 02/06/22 02:37 Labs: Laboratory WBC 17.2 X10^3/uL (3.6-10.0) H 02/06/22 02:37 RBC 4.50 X10^6/uL (4.7-6.0) L 02/06/22 02:37 Hgb 13.2 g/dL (13.5-18.0) L 02/06/22 02:37 Hct 38.5 % (42.0-54.0) L 02/06/22 02:37 MCV 85.6 fL (80.0-100.0) 02/06/22 02:37 MCH 29.4 pg (27.0-34.0) 02/06/22 02:37 MCHC 34.4 g/dL (33.0-35.0) 02/06/22 02:37 RDW 14.9 % (11.6-16.5) 02/06/22 02:37 Plt Count 273 X10^3/uL (150.0-450.0) 02/06/22 02:37 MPV 8.3 fL (7.4-11.0) 02/06/22 02:37 Neut % (Auto) 78.4 % (42.0-75.0) H 02/06/22 02:37 Lymph % (Auto) 9.8 % (21.0-51.0) L 02/06/22 02:37 [place] % (Auto) 11.3 % (0.0-13.0) 02/06/22 02:37 Eos % (Auto) 0.3 % (0.9-2.9) L 02/06/22 02:37 Baso % (Auto) 0.2 % (0.2-1.0) 02/06/22 02:37 Neut # (Auto) 13.4 x10^3/uL (2.2-4.8) H 02/06/22 02:37 Lymph # (Auto) 1.7 X10^3/uL (1.3-2.9) 02/06/22 02:37 [place] # (Auto) 1.9 x10^3/uL (0.3-0.8) H 02/06/22 02:37 Eos # (Auto) 0.0 x10^3/uL (0.0-0.2) 02/06/22 02:37 Baso # (Auto) 0.0 X10^3/uL (0.0-0.1) 02/06/22 02:37 Absolute Nucleated RBC 0.0 /100WBC 02/06/22 02:37 ESR 67 MM/HOUR (0-15) H 02/05/22 23:00 Sodium 131 mmol/L (136-145) L 02/06/22 02:37 Corrected Sodium 136 mmol/L (136-145) 02/06/22 02:37 Potassium 3.5 mmol/L (3.5-5.1) 02/06/22 02:37 Chloride 98 mmol/L (98-107) 02/06/22 02:37 Carbon Dioxide 25.1 mmol/L (21-32) 02/06/22 02:37 BUN 16 mg/dL (7-18) 02/06/22 02:37 Creatinine 1.33 mg/dL (0.70-1.30) H 02/06/22 02:37 Est GFR (MDRD) Af Amer > 60 (>60) 02/06/22 02:37 Est GFR (MDRD) Non-Af > 60 (>60) 02/06/22 02:37 Glucose 317 mg/dL (65-99) H 02/06/22 02:37 POC Glucose (mg/dL) 223 mg/dL (65-99) H 02/06/22 11:17 Lactic Acid 1.3 mmol/L (0.4-2.0) 02/05/22 19:15 Calcium 8.4 mg/dL (8.5-10.1) L 02/06/22 02:37 Corrected Calcium 9.7 mg/dL (8.5-10.1) 02/06/22 02:37 Total Bilirubin 0.60 mg/dL (0.2-1.0) 02/06/22 02:37 AST 15 Units/L (15-37) 02/06/22 02:37 ALT 24 Units/L (12-78) 02/06/22 02:37 Alkaline Phosphatase 123 Units/L (46-116) H 02/06/22 02:37 C-Reactive Protein 243.10 mg/L (0-3.0) H 02/05/22 20:25 Total Protein 6.4 g/dL (6.4-8.2) 02/06/22 02:37 Albumin 2.4 g/dL (3.4-5.0) L 02/06/22 02:37 Globulin 4.0 g/dL (2.5-4.5) 02/06/22 02:37 Albumin/Globulin Ratio 0.6 Ratio (1.1-2.1) L 02/06/22 02:37 Amylase 16 Units/L (25-115) L 02/05/22 16:49 Lipase 134 Units/L (73-393) 02/05/22 16:49 Specimen Type Clean catch urine 02/05/22 17:00 Urine Color Yellow (YELLOW) 02/05/22 17:00 Urine Appearance Slightly hazy (CLEAR) 02/05/22 17:00 Urine pH 6.0 (5.0 - 8.0) 02/05/22 17:00 Ur Specific [place] 1.015 (1.000-1.030) 02/05/22 17:00 Urine Protein 2+ (NEGATIVE) 02/05/22 17:00 Urine Glucose (UA) 4+ (NEGATIVE) 02/05/22 17:00 Urine Ketones 4+ (NEGATIVE) 02/05/22 17:00 Urine Blood Negative (NEGATIVE) 02/05/22 17:00 Urine Nitrite Negative (NEGATIVE) 02/05/22 17:00 Urine Bilirubin Negative (NEGATIVE) 02/05/22 17:00 Urine Urobilinogen Normal (NORMAL) 02/05/22 17:00 Ur Leukocyte Esterase Negative (NEGATIVE) 02/05/22 17:00 Urine RBC None seen /HPF (0-3) 02/05/22 17:00 Urine WBC 0-2 /HPF (0-5) 02/05/22 17:00 Ur Squamous Epith Cells Rare /HPF (NEGATIVE) 02/05/22 17:00 Urine Bacteria Negative /HPF (NEGATIVE) 02/05/22 17:00 Coarse Granular Casts Rare /HPF (NEGATIVE) 02/05/22 17:00 Urine Mucus Rare /HPF (NEGATIVE) 02/05/22 17:00 Ur Culture Indicated? No/not indicated 02/05/22 17:00 Urine Opiates Screen Negative (NEG=<300) 02/05/22 17:00 Urine Methadone Screen Negative (NEG=<300) 02/05/22 17:00 Ur Barbiturates Screen Negative (NEG=<200) 02/05/22 17:00 Ur Phencyclidine Scrn Negative (NEG=<25) 02/05/22 17:00 Ur Amphetamines Screen Negative (NEG=<1000) 02/05/22 17:00 U Benzodiazepines Scrn Negative (NEG=<200) 02/05/22 17:00 Urine Cocaine Screen Negative (NEG=<300) 02/05/22 17:00 U Marijuana (THC) Screen Negative (NEG=<50) 02/05/22 17:00 Acetone, Semi-Quant Small (NEGATIVE) H 02/05/22 16:49 SARS-CoV-2 (PCR) Negative (NEGATIVE) 02/05/22 22:24 Influenza Type A (PCR) Negative (NEGATIVE) 02/05/22 22:24 Influenza Type B (PCR) Negative (NEGATIVE) 02/05/22 22:24 RSV (PCR) Negative (NEGATIVE) 02/05/22 22:24 Review of Systems Constitutional: Weakness Eyes: No Symptoms Reported ENT: No Symptoms Reported Respiratory: No Symptoms Reported Cardiovascular: No Symptoms Reported Gastrointestinal: Nausea and Vomiting Genitourinary: No Symptoms Reported Musculoskeletal: Back Pain (left lower back ) Skin: No Symptoms Reported Neurological: No Symptoms Reported Physical Exam Vital Signs: Temperature 98.3 F Pulse Rate [Right Brachial] 103 Pulse Rate 119 Respiratory Rate 18 Blood Pressure [Right Arm] 148/78 Blood Pressure 146/87 O2 Sat by Pulse Oximetry 96 Oriented: Normal Eyes: Normal Ear: Normal Nose: Normal Throat: Normal Respiratory: Clear Throughout Cardiovascular: Normal Auscultation: Bowel Sounds: Normal Palpation: Normal Tenderness: Normal Skin: Normal Musculoskeletal: Left, Back:Lumbar and Back:Paraspinous Psychiatric: Anxiety Mood Description: Anxious Affect: Anxious Speech Pattern: Clear and Appropriate Assessment/Plan (1) Hyperglycemia: Status: Acute (2) Dehydration: Status: Acute (3) Leucocytosis: Status: Acute (4) Splenic disorder: Status: Acute (5) Decreased oral intake: Status: Acute (6) Intractable nausea and vomiting: Status: Acute (7) Uncontrolled diabetes mellitus: Status: Acute (8) HTN (hypertension): Status: Acute
--- NOTE | 2022-02-06 14:39 | CT ---
HISTORYacute flank pain, f/u ct results spleenSTUDYABDOMEN/PELVIS WITH CONCOMPARISONYesterdayTECHNIQUEMultiple axial images of the abdomen and pelvis were obtained from the lung bases to the pubic symphysis after the administration of IV contrast. Dose reduction techniques including Automated Exposure Control (AEC) and adjustment of mA and kV were utilized.FINDINGSThe visualized portions of the lung bases traits slight interval worsening in effusion with associated consolidation.. The spleen again demonstrates heterogeneous attenuation with poor perfusion of the majority of the spleen. This could represent a large infarct possibly hematoma if there has been any history of trauma. There is some mild stranding around the spleen however no significant free fluid is seen. Infection is also in the differential but would be less likely. Probable fatty infiltration of the liver is noted. The solid organs otherwise unremarkable in their contrast appearance.. The gallbladder is unremarkable in its CT appearance . No significant mesenteric lymphadenopathy or stranding can be observed. No free fluid or free air is seen within the abdomen. No bowel wall thickening or bowel dilatation is present. The colon is unremarkable. Specifically, there is no diverticulosis noted within the sigmoid colon. Appendix is normal. The urinary bladder is grossly unremarkable. The bony structures are grossly intact.IMPRESSIONHeterogeneously enlarged spleen with poor enhancement there is some mild perisplenic stranding with no significant fluid. Again these findings could be due to large infarct although infection or even trauma could give this appearance. The lack of any free fluid or any associated rib fractures makes trauma less likely although clinical correlation will be needed in this regard.Electronically signed by: ROBEL REDMOND (Feb 06, 2022 14:37:16)
[2022-02-06] MEDS: SNACK - Diabetic Appropriate PO SCH (21:08)
[2022-02-07] MEDS: DILAUDID INJ IVP PRN ×5 (00:45→20:32)
[2022-02-07] MEDS: ZOSYN VIAL 3.375 GRAMS 3.375 G in NS 100 ML IV 100 ML IV SCH ×3 (05:20→21:59)
[2022-02-07] MEDS: NovoLIN R (or HumuLIN R) SUBCUT PRN ×3 (05:35→17:16)
[2022-02-07 06:32] LABS: BASOPHILS # (AUTO) 0.1 X10^3/uL (0.0-0.1); BASOPHILS % (AUTO) 0.8 % (0.2-1.0); EOSINOPHILS # (AUTO) 0.1 x10^3/uL (0.0-0.2); EOSINOPHILS % (AUTO) 0.5 % (0.9-2.9); HEMOGLOBIN 12.7 g/dL (13.5-18.0); LYMPHOCYTES # (AUTO) 1.3 X10^3/uL (1.3-2.9); LYMPHOCYTES % (AUTO) 7.6 % (21.0-51.0); MEAN CORPUSCULAR HEMOGLOBIN 28.8 pg (27.0-34.0); MEAN CORPUSCULAR HGB CONC 33.3 g/dL (33.0-35.0); MEAN CORPUSCULAR VOLUME 86.4 fL (80.0-100.0); MEAN PLATELET VOLUME 8.2 fL (7.4-11.0); MONOCYTES # (AUTO) 1.9 x10^3/uL (0.3-0.8); MONOCYTES % (AUTO) 11.4 % (0.0-13.0); NEUTROPHILS # (AUTO) 13.6 x10^3/uL (2.2-4.8); NEUTROPHILS % (AUTO) 79.7 % (42.0-75.0); RED CELL DISTRIBUTION WIDTH 14.9 % (11.6-16.5)
[2022-02-07 06:35] LABS: ALBUMIN 2.2 g/dL (3.4-5.0); CALCIUM 8.4 mg/dL (8.5-10.1); CARBON DIOXIDE 24.9 mmol/L (21-32); COR CA(FOR HYPOALB) 9.8 mg/dL (8.5-10.1); CREATININE 1.74 mg/dL (0.70-1.30); TOTAL PROTEIN 6.5 g/dL (6.4-8.2)
[2022-02-07] MEDS ORDERED: K-DUR TAB 20 MEQ PO PRN (06:39)
[2022-02-07] MEDS ORDERED: MICRO K EXTEN CAP 10 MEQ PO PRN (06:39)
[2022-02-07] MEDS ORDERED: POTASSIUM CHL 60 MEQ/NS 0.45% 500 ML IV PRN (06:39)
[2022-02-07] MEDS ORDERED: K-RIDER 10 MEQ/NS 100 ML 10 MEQ/100 ML BAG IV PRN (06:39)
[2022-02-07] MEDS ORDERED: POTASSIUM CHLORIDE LIQ 20 MEQ UDC PO PRN (06:39)
[2022-02-07] MEDS ORDERED: POTASSIUM CHL 40 MEQ/NS 0.45% 500 ML IV PRN (06:39)
[2022-02-07] MEDS ORDERED: KLOR-CON PO PRN (06:39)
[2022-02-07] MEDS: NS 1,000 ML IV 1,000 ML IV SCH ×3 (09:48→23:47)
[2022-02-07] MEDS: ZESTRIL TAB 40 MG PO SCH (09:49)
[2022-02-07] MEDS: FLOMAX PO SCH (09:49)
[2022-02-07] MEDS: AMARYL TAB 4 MG PO SCH (09:49)
[2022-02-07] MEDS: NICOTINE PATCH TD SCH (09:49)
[2022-02-07] MEDS: PROTONIX INJ 40 MG VIAL IVP SCH (09:49)
[2022-02-07 10:13] VITALS: BMI 45.9
[2022-02-07] MEDS: MAGNESIUM SULFATE 1 GRAM/100 mL PREMIX 1 G/100 ML BAG IV PRN ×2 (10:34→11:42)
--- NOTE | 2022-02-07 11:17 | RAD ---
HISTORYHYPOXIA PT STATES SOB WHEN MOVINGSTUDYCHEST, 1 VIEWCOMPARISONNone.FINDINGSThe trachea is midline. The cardiac silhouette is enlarged without evidence of congestive heart failure. The lungs are clear without focal infiltrate or effusion. The bony thorax is unremarkable.IMPRESSION1. No acute cardiopulmonary findings .2. Enlarged cardiac silhouette without evidence of congestive heart failure.Electronically signed by: KATARZYNA BARRIENTOS (Feb 07, 2022 11:16:20)
[2022-02-07] MEDS ORDERED: ROBITUSSIN DM PO PRN (12:01)
[2022-02-07] MEDS ORDERED: TESSALON PERLES PO PRN (12:01)
--- NOTE | 2022-02-07 12:09 | PCM.PROG ---
Progress Note Progress Note for Day of Date of Exam: 02/07/22 Subjective Subjective: Patient seen at bedside, no acute events overnight. He continues to have left lower back/flank pain. He states pain medications help keep it controlled but as soon as it wears off, the pain is severe. He denies any trauma or fall. He also reports coughing up more lately, some sputum. He states he has had cough and dyspnea since he had covid last year. He is not able to walk long distance due to shortness of breath. Labs/imaging reveiwed CTAP with contrast: splenic infarction/hematoma/infection. Lung consolidation noted. Labs: BUN/Cr-21/1.74 WBC 17 K: 3.5 FSBG 246 Blood Cx: no growth Plan: will consult Dr Saleh. Order CXR. Add nebs and cough medicine. Hold lisinopril due to worsening renal function. Change IVF to 75cc/hr. Will order echo due to exertional dyspnea. Continue IV zosyn. Start lantus 15 units qPM, continue SSI. Monitor AM labs/imaging. Past Medical Family Social History Allergies: Allergies shellfish derived Adverse Reaction (Verified 10/05/17 22:23) Vital Signs and I&O's Vital Signs: Temperature 97 F Pulse Rate [Right Brachial] 98 Pulse Rate 106 Respiratory Rate 20 Blood Pressure [Right Arm] 110/53 Blood Pressure 146/87 O2 Sat by Pulse Oximetry 96 Intake and Output: Intake & Output 02/04/22 02/05/22 02/06/22 02/07/22 23:59 23:59 23:59 23:59 Intake Total 1505 / 1505 1062 / 1062 Output Total 1500 / 1500 250 / 250 Balance / 812 / 812 Physical Exam Oriented: Normal Eyes: Normal Ear: Normal Nose: Normal Throat: Normal Respiratory: Generalized and Wheezes Cardiovascular: Normal Auscultation: Bowel Sounds: Normal Palpation: Normal Tenderness: Normal Skin: Normal Musculoskeletal: Left, Back:Lumbar and Back:Paraspinous Psychiatric: Normal Mood Description: Calm Affect: Normal Speech Pattern: Clear and Appropriate Laboratory and Diagnostics Result Diagrams: 02/07/22 05:20 02/07/22 05:20 Labs: 02/05/22 19:20 Blood Blood Culture - Preliminary 02/05/22 19:15 Blood Blood Culture - Preliminary Laboratory WBC 17.0 X10^3/uL (3.6-10.0) H 02/07/22 05:20 WBC Cancelled 02/07/22 05:20 RBC 4.40 X10^6/uL (4.7-6.0) L 02/07/22 05:20 RBC Cancelled 02/07/22 05:20 Hgb 12.7 g/dL (13.5-18.0) L 02/07/22 05:20 Hgb Cancelled 02/07/22 05:20 Hct 38.0 % (42.0-54.0) L 02/07/22 05:20 Hct Cancelled 02/07/22 05:20 MCV 86.4 fL (80.0-100.0) 02/07/22 05:20 MCV Cancelled 02/07/22 05:20 MCH 28.8 pg (27.0-34.0) 02/07/22 05:20 MCH Cancelled 02/07/22 05:20 MCHC 33.3 g/dL (33.0-35.0) 02/07/22 05:20 MCHC Cancelled 02/07/22 05:20 RDW 14.9 % (11.6-16.5) 02/07/22 05:20 RDW Cancelled 02/07/22 05:20 Plt Count 356 X10^3/uL (150.0-450.0) 02/07/22 05:20 Plt Count Cancelled 02/07/22 05:20 Plt Count Comment Cancelled 02/07/22 05:20 MPV 8.2 fL (7.4-11.0) 02/07/22 05:20 MPV Cancelled 02/07/22 05:20 Neut % (Auto) 79.7 % (42.0-75.0) H 02/07/22 05:20 Neut % (Auto) Cancelled 02/07/22 05:20 Lymph % (Auto) 7.6 % (21.0-51.0) L 02/07/22 05:20 Lymph % (Auto) Cancelled 02/07/22 05:20 [place] % (Auto) 11.4 % (0.0-13.0) 02/07/22 05:20 [place] % (Auto) Cancelled 02/07/22 05:20 Eos % (Auto) 0.5 % (0.9-2.9) L 02/07/22 05:20 Eos % (Auto) Cancelled 02/07/22 05:20 Baso % (Auto) 0.8 % (0.2-1.0) 02/07/22 05:20 Baso % (Auto) Cancelled 02/07/22 05:20 Neut # (Auto) 13.6 x10^3/uL (2.2-4.8) H 02/07/22 05:20 Neut # (Auto) Cancelled 02/07/22 05:20 Lymph # (Auto) 1.3 X10^3/uL (1.3-2.9) 02/07/22 05:20 Lymph # (Auto) Cancelled 02/07/22 05:20 [place] # (Auto) 1.9 x10^3/uL (0.3-0.8) H 02/07/22 05:20 [place] # (Auto) Cancelled 02/07/22 05:20 Eos # (Auto) 0.1 x10^3/uL (0.0-0.2) 02/07/22 05:20 Eos # (Auto) Cancelled 02/07/22 05:20 Baso # (Auto) 0.1 X10^3/uL (0.0-0.1) 02/07/22 05:20 Baso # (Auto) Cancelled 02/07/22 05:20 Absolute Nucleated RBC 0.0 /100WBC 02/07/22 05:20 Absolute Nucleated RBC Cancelled 02/07/22 05:20 Total Counted Cancelled 02/07/22 05:20 Neutrophils % (Manual) Cancelled 02/07/22 05:20 Band Neutrophils % Cancelled 02/07/22 05:20 Lymphocytes % (Manual) Cancelled 02/07/22 05:20 Monocytes % (Manual) Cancelled 02/07/22 05:20 Eosinophils % (Manual) Cancelled 02/07/22 05:20 Basophils % (Manual) Cancelled 02/07/22 05:20 Metamyelocytes % Cancelled 02/07/22 05:20 Myelocytes % Cancelled 02/07/22 05:20 Promyelocytes % Cancelled 02/07/22 05:20 Nucleated RBCs Cancelled 02/07/22 05:20 Atypical Lymphocytes Cancelled 02/07/22 05:20 Blast Cells Cancelled 02/07/22 05:20 Smudge Cells Cancelled 02/07/22 05:20 Toxic Granulation Cancelled 02/07/22 05:20 Dohle Bodies Cancelled 02/07/22 05:20 Hilario Rods Cancelled 02/07/22 05:20 Plt Clumps, EDTA Cancelled 02/07/22 05:20 Giant Platelets Cancelled 02/07/22 05:20 Plt Morphology Comment Cancelled 02/07/22 05:20 RBC Morphology Cancelled 02/07/22 05:20 Dimorphic RBCs Cancelled 02/07/22 05:20 Polychromasia Cancelled 02/07/22 05:20 Hypochromasia Cancelled 02/07/22 05:20 Poikilocytosis Cancelled 02/07/22 05:20 Basophilic Stippling Cancelled 02/07/22 05:20 Anisocytosis Cancelled 02/07/22 05:20 Microcytosis Cancelled 02/07/22 05:20 Macrocytosis Cancelled 02/07/22 05:20 Spherocytes Cancelled 02/07/22 05:20 Pappenheimer Bodies Cancelled 02/07/22 05:20 Sickle Cells Cancelled 02/07/22 05:20 Target Cells Cancelled 02/07/22 05:20 Tear Drop Cells Cancelled 02/07/22 05:20 Ovalocytes Cancelled 02/07/22 05:20 Stomatocytes Cancelled 02/07/22 05:20 Helmet Cells Cancelled 02/07/22 05:20 [place] Bodies Cancelled 02/07/22 05:20 [place] Rings Cancelled 02/07/22 05:20 Chidi Cells Cancelled 02/07/22 05:20 Crenated Cell Cancelled 02/07/22 05:20 Acanthocytes (Spur) Cancelled 02/07/22 05:20 Rouleaux Cancelled 02/07/22 05:20 Schistocytes Cancelled 02/07/22 05:20 ESR 67 MM/HOUR (0-15) H 02/05/22 23:00 Sodium 131 mmol/L (136-145) L 02/07/22 05:20 Corrected Sodium 135 mmol/L (136-145) L 02/07/22 05:20 Potassium 3.5 mmol/L (3.5-5.1) 02/07/22 05:20 Chloride 97 mmol/L (98-107) L 02/07/22 05:20 Carbon Dioxide 24.9 mmol/L (21-32) 02/07/22 05:20 BUN 21 mg/dL (7-18) H 02/07/22 05:20 Creatinine 1.74 mg/dL (0.70-1.30) H 02/07/22 05:20 Est GFR (MDRD) Af Amer 54 (>60) L 02/07/22 05:20 Est GFR (MDRD) Non-Af 45 (>60) L 02/07/22 05:20 Glucose 246 mg/dL (65-99) H 02/07/22 05:20 POC Glucose (mg/dL) 251 mg/dL (65-99) H 02/07/22 10:50 Lactic Acid 1.3 mmol/L (0.4-2.0) 02/05/22 19:15 Calcium 8.4 mg/dL (8.5-10.1) L 02/07/22 05:20 Corrected Calcium 9.8 mg/dL (8.5-10.1) 02/07/22 05:20 Magnesium 1.9 mg/dL (1.7-2.9) 02/07/22 05:20 Total Bilirubin 0.40 mg/dL (0.2-1.0) 02/07/22 05:20 AST 24 Units/L (15-37) 02/07/22 05:20 ALT 32 Units/L (12-78) 02/07/22 05:20 Alkaline Phosphatase 124 Units/L (46-116) H 02/07/22 05:20 C-Reactive Protein 243.10 mg/L (0-3.0) H 02/05/22 20:25 Total Protein 6.5 g/dL (6.4-8.2) 02/07/22 05:20 Albumin 2.2 g/dL (3.4-5.0) L 02/07/22 05:20 Globulin 4.3 g/dL (2.5-4.5) 02/07/22 05:20 Albumin/Globulin Ratio 0.5 Ratio (1.1-2.1) L 02/07/22 05:20 Amylase 16 Units/L (25-115) L 02/05/22 16:49 Lipase 134 Units/L (73-393) 02/05/22 16:49 Specimen Type Clean catch urine 02/05/22 17:00 Urine Color Yellow (YELLOW) 02/05/22 17:00 Urine Appearance Slightly hazy (CLEAR) 02/05/22 17:00 Urine pH 6.0 (5.0 - 8.0) 02/05/22 17:00 Ur Specific [place] 1.015 (1.000-1.030) 02/05/22 17:00 Urine Protein 2+ (NEGATIVE) 02/05/22 17:00 Urine Glucose (UA) 4+ (NEGATIVE) 02/05/22 17:00 Urine Ketones 4+ (NEGATIVE) 02/05/22 17:00 Urine Blood Negative (NEGATIVE) 02/05/22 17:00 Urine Nitrite Negative (NEGATIVE) 02/05/22 17:00 Urine Bilirubin Negative (NEGATIVE) 02/05/22 17:00 Urine Urobilinogen Normal (NORMAL) 02/05/22 17:00 Ur Leukocyte Esterase Negative (NEGATIVE) 02/05/22 17:00 Urine RBC None seen /HPF (0-3) 02/05/22 17:00 Urine WBC 0-2 /HPF (0-5) 02/05/22 17:00 Ur Squamous Epith Cells Rare /HPF (NEGATIVE) 02/05/22 17:00 Urine Bacteria Negative /HPF (NEGATIVE) 02/05/22 17:00 Coarse Granular Casts Rare /HPF (NEGATIVE) 02/05/22 17:00 Urine Mucus Rare /HPF (NEGATIVE) 02/05/22 17:00 Ur Culture Indicated? No/not indicated 02/05/22 17:00 Urine Opiates Screen Negative (NEG=<300) 02/05/22 17:00 Urine Methadone Screen Negative (NEG=<300) 02/05/22 17:00 Ur Barbiturates Screen Negative (NEG=<200) 02/05/22 17:00 Ur Phencyclidine Scrn Negative (NEG=<25) 02/05/22 17:00 Ur Amphetamines Screen Negative (NEG=<1000) 02/05/22 17:00 U Benzodiazepines Scrn Negative (NEG=<200) 02/05/22 17:00 Urine Cocaine Screen Negative (NEG=<300) 02/05/22 17:00 U Marijuana (THC) Screen Negative (NEG=<50) 02/05/22 17:00 Acetone, Semi-Quant Small (NEGATIVE) H 02/05/22 16:49 SARS-CoV-2 (PCR) Negative (NEGATIVE) 02/05/22 22:24 Influenza Type A (PCR) Negative (NEGATIVE) 02/05/22 22:24 Influenza Type B (PCR) Negative (NEGATIVE) 02/05/22 22:24 RSV (PCR) Negative (NEGATIVE) 02/05/22 22:24 Plan (1) Hyperglycemia: Status: Acute (2) Dehydration: Status: Acute (3) Leucocytosis: Status: Acute (4) Splenic disorder: Status: Acute (5) Decreased oral intake: Status: Acute (6) Intractable nausea and vomiting: Status: Acute (7) Uncontrolled diabetes mellitus: Status: Acute (8) HTN (hypertension): Status: Acute
[2022-02-07] MEDS ORDERED: DUONEB 0.5 MG/3 MG (3 mL) NEB ONE (12:51)
[2022-02-07] MEDS: DUONEB 0.5 MG/3 MG (3 mL) NEB SCH ×2 (13:05→21:35)
[2022-02-07] MEDS: NORCO 5/325 MG TAB PO PRN (14:28)
[2022-02-07] MEDS ORDERED: SNACK - Diabetic Appropriate PO SCH (20:00)
[2022-02-07] MEDS: SNACK - Diabetic Appropriate PO SCH (20:45)
[2022-02-07] MEDS ORDERED: LANTUS SC SCH (21:00)
[2022-02-08] MEDS: DILAUDID INJ IVP PRN ×5 (02:07→22:40)
[2022-02-08] MEDS: DUONEB 0.5 MG/3 MG (3 mL) NEB SCH ×3 (05:24→21:00)
[2022-02-08] MEDS: ZOSYN VIAL 3.375 GRAMS 3.375 G in NS 100 ML IV 100 ML IV SCH ×3 (05:28→21:00)
[2022-02-08] MEDS: NORCO 5/325 MG TAB PO PRN ×3 (05:29→23:55)
[2022-02-08] MEDS: NS 1,000 ML IV 1,000 ML IV SCH ×4 (05:40→20:00)
[2022-02-08 06:05] LABS: ALANINE AMINOTRANSFERASE 53 Units/L (12-78); ALBUMIN 1.9 g/dL (3.4-5.0); ALKALINE PHOSPHATASE 159 Units/L (46-116); ASPARTATE AMINO TRANSFERASE 44 Units/L (15-37); BLOOD UREA NITROGEN 13 mg/dL (7-18); CALCIUM 8.5 mg/dL (8.5-10.1); CARBON DIOXIDE 26.4 mmol/L (21-32); CHLORIDE 101 mmol/L (98-107); COR CA(FOR HYPOALB) 10.2 mg/dL (8.5-10.1); COR NA(FOR HYPERGLY) 136 mmol/L (136-145); CREATININE 1.38 mg/dL (0.70-1.30); MAGNESIUM 2.1 mg/dL (1.7-2.9); SODIUM 133 mmol/L (136-145); TOTAL PROTEIN 6.8 g/dL (6.4-8.2); eGFR NON BLACK RACES 58 (>60)
[2022-02-08 06:08] LABS: BASOPHILS % (AUTO) 0.3 % (0.2-1.0); EOSINOPHILS # (AUTO) 0.1 x10^3/uL (0.0-0.2); LYMPHOCYTES # (AUTO) 1.5 X10^3/uL (1.3-2.9); LYMPHOCYTES % (AUTO) 12.2 % (21.0-51.0); MEAN CORPUSCULAR HEMOGLOBIN 28.8 pg (27.0-34.0); MEAN CORPUSCULAR HGB CONC 33.5 g/dL (33.0-35.0); MEAN CORPUSCULAR VOLUME 86.1 fL (80.0-100.0); MONOCYTES # (AUTO) 1.3 x10^3/uL (0.3-0.8); MONOCYTES % (AUTO) 10.7 % (0.0-13.0); NEUTROPHILS # (AUTO) 9.5 x10^3/uL (2.2-4.8); NEUTROPHILS % (AUTO) 75.8 % (42.0-75.0); RED BLOOD COUNT 4.53 X10^6/uL (4.7-6.0); RED CELL DISTRIBUTION WIDTH 14.7 % (11.6-16.5); WHITE BLOOD COUNT 12.5 X10^3/uL (3.6-10.0)
[2022-02-08] MEDS: NovoLIN R (or HumuLIN R) SUBCUT PRN ×2 (06:17→17:32)
[2022-02-08] MEDS: NICOTINE PATCH TD SCH (08:57)
[2022-02-08] MEDS: PROTONIX INJ 40 MG VIAL IVP SCH (08:57)
[2022-02-08] MEDS: AMARYL TAB 4 MG PO SCH (08:57)
[2022-02-08] MEDS: FLOMAX PO SCH (08:57)
[2022-02-08] MEDS: MORPHINE SULFATE INJ 4 MG IVP PRN (10:15)
--- NOTE | 2022-02-08 10:26 | DR.PROGNOT ---
Hospital Progress Notes - Progress Note for Day of: Progress Note Date: 02/08/22 - Chief Complaint Chief Complaint: C/O luq PAIN RADIATING TO THE BACK .. no nausea or vomiting . no BM for two days .. WBC is down 12.5 ..Creat 1.38.. BS 195. CRP 243 .. low grade fever . - Past Medical Family Social History Past Med/Fam/Surg Hx: No changes since H&P Allergies: Allergies shellfish derived Adverse Reaction (Verified 10/05/17 22:23) - Review Of Systems ROS: No change since H&P - Vital Signs Vital Signs: Temperature 99.0 F Pulse Rate [Right Brachial] 112 Pulse Rate 116 Respiratory Rate 22 Blood Pressure [Right Arm] 133/73 Blood Pressure 146/87 O2 Sat by Pulse Oximetry 91 - Physical Exam Oriented: Normal Eyes: Normal Ear: Normal Nose: Normal Throat: Normal Respiratory: Generalized, Wheezes Cardiovascular: Normal GI:Auscultation: Normal GI:Palpation: Normal GI: Tenderness: Normal, LUQ (abdomen with moderate LUQ tenderness .. no rebound .. BS+ ) Skin: Normal Musculoskeletal: Left, Back:Lumbar, Back:Paraspinous Psychiatric: Normal Mood Description: Calm Affect: Normal Speech Pattern: Clear, Appropriate - Laboratory and Diagnostics Result Diagrams: 02/08/22 05:08 02/08/22 05:08 Labs: 02/05/22 19:20 Blood Blood Culture - Preliminary 02/05/22 19:15 Blood Blood Culture - Preliminary Laboratory WBC 12.5 X10^3/uL (3.6-10.0) H 02/08/22 05:08 RBC 4.53 X10^6/uL (4.7-6.0) L 02/08/22 05:08 Hgb 13.0 g/dL (13.5-18.0) L 02/08/22 05:08 Hct 39.0 % (42.0-54.0) L 02/08/22 05:08 MCV 86.1 fL (80.0-100.0) 02/08/22 05:08 MCH 28.8 pg (27.0-34.0) 02/08/22 05:08 MCHC 33.5 g/dL (33.0-35.0) 02/08/22 05:08 RDW 14.7 % (11.6-16.5) 02/08/22 05:08 Plt Count 417 X10^3/uL (150.0-450.0) 02/08/22 05:08 Plt Count Comment Cancelled 02/07/22 05:20 MPV 8.0 fL (7.4-11.0) 02/08/22 05:08 Neut % (Auto) 75.8 % (42.0-75.0) H 02/08/22 05:08 Lymph % (Auto) 12.2 % (21.0-51.0) L 02/08/22 05:08 [place] % (Auto) 10.7 % (0.0-13.0) 02/08/22 05:08 Eos % (Auto) 1.0 % (0.9-2.9) 02/08/22 05:08 Baso % (Auto) 0.3 % (0.2-1.0) 02/08/22 05:08 Neut # (Auto) 9.5 x10^3/uL (2.2-4.8) H 02/08/22 05:08 Lymph # (Auto) 1.5 X10^3/uL (1.3-2.9) 02/08/22 05:08 [place] # (Auto) 1.3 x10^3/uL (0.3-0.8) H 02/08/22 05:08 Eos # (Auto) 0.1 x10^3/uL (0.0-0.2) 02/08/22 05:08 Baso # (Auto) 0.0 X10^3/uL (0.0-0.1) 02/08/22 05:08 Absolute Nucleated RBC 0.0 /100WBC 02/08/22 05:08 Total Counted Cancelled 02/07/22 05:20 Neutrophils % (Manual) Cancelled 02/07/22 05:20 Band Neutrophils % Cancelled 02/07/22 05:20 Lymphocytes % (Manual) Cancelled 02/07/22 05:20 Monocytes % (Manual) Cancelled 02/07/22 05:20 Eosinophils % (Manual) Cancelled 02/07/22 05:20 Basophils % (Manual) Cancelled 02/07/22 05:20 Metamyelocytes % Cancelled 02/07/22 05:20 Myelocytes % Cancelled 02/07/22 05:20 Promyelocytes % Cancelled 02/07/22 05:20 Nucleated RBCs Cancelled 02/07/22 05:20 Atypical Lymphocytes Cancelled 02/07/22 05:20 Blast Cells Cancelled 02/07/22 05:20 Smudge Cells Cancelled 02/07/22 05:20 Toxic Granulation Cancelled 02/07/22 05:20 Dohle Bodies Cancelled 02/07/22 05:20 Hilario Rods Cancelled 02/07/22 05:20 Plt Clumps, EDTA Cancelled 02/07/22 05:20 Giant Platelets Cancelled 02/07/22 05:20 Plt Morphology Comment Cancelled 02/07/22 05:20 RBC Morphology Cancelled 02/07/22 05:20 Dimorphic RBCs Cancelled 02/07/22 05:20 Polychromasia Cancelled 02/07/22 05:20 Hypochromasia Cancelled 02/07/22 05:20 Poikilocytosis Cancelled 02/07/22 05:20 Basophilic Stippling Cancelled 02/07/22 05:20 Anisocytosis Cancelled 02/07/22 05:20 Microcytosis Cancelled 02/07/22 05:20 Macrocytosis Cancelled 02/07/22 05:20 Spherocytes Cancelled 02/07/22 05:20 Pappenheimer Bodies Cancelled 02/07/22 05:20 Sickle Cells Cancelled 02/07/22 05:20 Target Cells Cancelled 02/07/22 05:20 Tear Drop Cells Cancelled 02/07/22 05:20 Ovalocytes Cancelled 02/07/22 05:20 Stomatocytes Cancelled 02/07/22 05:20 Helmet Cells Cancelled 02/07/22 05:20 [place] Bodies Cancelled 02/07/22 05:20 [place] Rings Cancelled 02/07/22 05:20 [place] Cells Cancelled 02/07/22 05:20 Crenated Cell Cancelled 02/07/22 05:20 Acanthocytes (Spur) Cancelled 02/07/22 05:20 Rouleaux Cancelled 02/07/22 05:20 Schistocytes Cancelled 02/07/22 05:20 ESR 67 MM/HOUR (0-15) H 02/05/22 23:00 Sodium 133 mmol/L (136-145) L 02/08/22 05:08 Corrected Sodium 136 mmol/L (136-145) 02/08/22 05:08 Potassium 3.8 mmol/L (3.5-5.1) 02/08/22 05:08 Chloride 101 mmol/L (98-107) 02/08/22 05:08 Carbon Dioxide 26.4 mmol/L (21-32) 02/08/22 05:08 BUN 13 mg/dL (7-18) 02/08/22 05:08 Creatinine 1.38 mg/dL (0.70-1.30) H 02/08/22 05:08 Est GFR (MDRD) Af Amer > 60 (>60) 02/08/22 05:08 Est GFR (MDRD) Non-Af 58 (>60) L 02/08/22 05:08 Glucose 240 mg/dL (65-99) H 02/08/22 05:08 POC Glucose (mg/dL) 195 mg/dL (65-99) H 02/08/22 05:20 Lactic Acid 1.3 mmol/L (0.4-2.0) 02/05/22 19:15 Calcium 8.5 mg/dL (8.5-10.1) 02/08/22 05:08 Corrected Calcium 10.2 mg/dL (8.5-10.1) H 02/08/22 05:08 Magnesium 2.1 mg/dL (1.7-2.9) 02/08/22 05:08 Total Bilirubin 0.30 mg/dL (0.2-1.0) 02/08/22 05:08 AST 44 Units/L (15-37) H 02/08/22 05:08 ALT 53 Units/L (12-78) 02/08/22 05:08 Alkaline Phosphatase 159 Units/L (46-116) H 02/08/22 05:08 C-Reactive Protein 243.10 mg/L (0-3.0) H 02/05/22 20:25 Total Protein 6.8 g/dL (6.4-8.2) 02/08/22 05:08 Albumin 1.9 g/dL (3.4-5.0) L 02/08/22 05:08 Globulin 4.9 g/dL (2.5-4.5) H 02/08/22 05:08 Albumin/Globulin Ratio 0.4 Ratio (1.1-2.1) L 02/08/22 05:08 Amylase 16 Units/L (25-115) L 02/05/22 16:49 Lipase 134 Units/L (73-393) 02/05/22 16:49 Specimen Type Clean catch urine 02/05/22 17:00 Urine Color Yellow (YELLOW) 02/05/22 17:00 Urine Appearance Slightly hazy (CLEAR) 02/05/22 17:00 Urine pH 6.0 (5.0 - 8.0) 02/05/22 17:00 Ur Specific [place] 1.015 (1.000-1.030) 02/05/22 17:00 Urine Protein 2+ (NEGATIVE) 02/05/22 17:00 Urine Glucose (UA) 4+ (NEGATIVE) 02/05/22 17:00 Urine Ketones 4+ (NEGATIVE) 02/05/22 17:00 Urine Blood Negative (NEGATIVE) 02/05/22 17:00 Urine Nitrite Negative (NEGATIVE) 02/05/22 17:00 Urine Bilirubin Negative (NEGATIVE) 02/05/22 17:00 Urine Urobilinogen Normal (NORMAL) 02/05/22 17:00 Ur Leukocyte Esterase Negative (NEGATIVE) 02/05/22 17:00 Urine RBC None seen /HPF (0-3) 02/05/22 17:00 Urine WBC 0-2 /HPF (0-5) 02/05/22 17:00 Ur Squamous Epith Cells Rare /HPF (NEGATIVE) 02/05/22 17:00 Urine Bacteria Negative /HPF (NEGATIVE) 02/05/22 17:00 Coarse Granular Casts Rare /HPF (NEGATIVE) 02/05/22 17:00 Urine Mucus Rare /HPF (NEGATIVE) 02/05/22 17:00 Ur Culture Indicated? No/not indicated 02/05/22 17:00 Urine Opiates Screen Negative (NEG=<300) 02/05/22 17:00 Urine Methadone Screen Negative (NEG=<300) 02/05/22 17:00 Ur Barbiturates Screen Negative (NEG=<200) 02/05/22 17:00 Ur Phencyclidine Scrn Negative (NEG=<25) 02/05/22 17:00 Ur Amphetamines Screen Negative (NEG=<1000) 02/05/22 17:00 U Benzodiazepines Scrn Negative (NEG=<200) 02/05/22 17:00 Urine Cocaine Screen Negative (NEG=<300) 02/05/22 17:00 U Marijuana (THC) Screen Negative (NEG=<50) 02/05/22 17:00 Acetone, Semi-Quant Small (NEGATIVE) H 02/05/22 16:49 SARS-CoV-2 (PCR) Negative (NEGATIVE) 02/05/22 22:24 Influenza Type A (PCR) Negative (NEGATIVE) 02/05/22 22:24 Influenza Type B (PCR) Negative (NEGATIVE) 02/05/22 22:24 RSV (PCR) Negative (NEGATIVE) 02/05/22 22:24 - Assessment and Plan 2: LUQ pain . splenic disorder .. no evidence of splenic abscess or infarct . DM with complications . morbid obesity . same IV ABT . .Diabetic control .. repeat abdiminal Ct with contrast in am .. - Problem Patient Problems: Patient Problems Leucocytosis (Acute) D72.829 Hyperglycemia (Acute) R73.9 Dehydration (Acute) E86.0 Splenic disorder (Acute) D73.9
--- NOTE | 2022-02-08 10:59 | PCM.PROG ---
Progress Note Progress Note for Day of Date of Exam: 02/08/22 Subjective Subjective: Patient seen at bedside, no acute events overnight. He does have LUQ pain that radiates to left lower back. He states pain medications help keep it controlled but as soon as it wears off, the pain is severe. He denies any trauma or fall. He does cough up more lately, some sputum. He states he has had cough and dyspnea since he had covid last year. He is not able to walk long distance due to shortness of breath. Labs/imaging reveiwed: CXR: No acute cardiopulmonary findings. CTAP with contrast: splenic infarction/hematoma/infection. Lung consolidation noted. Labs: Cr-1.38 WBC 17>12.5 K: 3.8 FSBG 240 Blood Cx: no growth Plan: Will consult Dr Saleh. Add nebs and cough medicine. Hold lisinopril, renal function improving. IVF 75cc/hr. Will order echo due to exertional dyspnea. Continue IV zosyn. Increase lantus to 20 units qPM, continue SSI. Monitor AM labs/imaging. Past Medical Family Social History Past Med/Fam/Surg Hx: No changes since H&P Allergies: Allergies shellfish derived Adverse Reaction (Verified 10/05/17 22:23) Review of Systems ROS: No change since H&P Vital Signs and I&O's Vital Signs: Temperature 99.0 F Pulse Rate [Right Brachial] 112 Pulse Rate 116 Respiratory Rate 22 Blood Pressure [Right Arm] 133/73 Blood Pressure 146/87 O2 Sat by Pulse Oximetry 91 Intake and Output: Intake & Output 02/05/22 02/06/22 02/07/22 02/08/22 23:59 23:59 23:59 23:59 Intake Total 1505 / 1505 4090 / 4090 987 / 987 Output Total 1500 / 1500 450 / 450 Balance 5 / 5 3640 / 3640 987 / 987 Physical Exam Oriented: Normal Eyes: Normal Ear: Normal Nose: Normal Throat: Normal Respiratory: Generalized Cardiovascular: Normal Auscultation: Bowel Sounds: Normal Tenderness: Normal and LUQ (abdomen with moderate LUQ tenderness .. no rebound .. BS+ ) Skin: Normal Musculoskeletal: Left, Back:Lumbar and Back:Paraspinous Psychiatric: Normal Mood Description: Calm Affect: Normal Speech Pattern: Clear and Appropriate Laboratory and Diagnostics Result Diagrams: 02/08/22 05:08 02/08/22 05:08 Labs: 02/05/22 19:20 Blood Blood Culture - Preliminary 02/05/22 19:15 Blood Blood Culture - Preliminary Laboratory WBC 12.5 X10^3/uL (3.6-10.0) H 02/08/22 05:08 RBC 4.53 X10^6/uL (4.7-6.0) L 02/08/22 05:08 Hgb 13.0 g/dL (13.5-18.0) L 02/08/22 05:08 Hct 39.0 % (42.0-54.0) L 02/08/22 05:08 MCV 86.1 fL (80.0-100.0) 02/08/22 05:08 MCH 28.8 pg (27.0-34.0) 02/08/22 05:08 MCHC 33.5 g/dL (33.0-35.0) 02/08/22 05:08 RDW 14.7 % (11.6-16.5) 02/08/22 05:08 Plt Count 417 X10^3/uL (150.0-450.0) 02/08/22 05:08 Plt Count Comment Cancelled 02/07/22 05:20 MPV 8.0 fL (7.4-11.0) 02/08/22 05:08 Neut % (Auto) 75.8 % (42.0-75.0) H 02/08/22 05:08 Lymph % (Auto) 12.2 % (21.0-51.0) L 02/08/22 05:08 [place] % (Auto) 10.7 % (0.0-13.0) 02/08/22 05:08 Eos % (Auto) 1.0 % (0.9-2.9) 02/08/22 05:08 Baso % (Auto) 0.3 % (0.2-1.0) 02/08/22 05:08 Neut # (Auto) 9.5 x10^3/uL (2.2-4.8) H 02/08/22 05:08 Lymph # (Auto) 1.5 X10^3/uL (1.3-2.9) 02/08/22 05:08 [place] # (Auto) 1.3 x10^3/uL (0.3-0.8) H 02/08/22 05:08 Eos # (Auto) 0.1 x10^3/uL (0.0-0.2) 02/08/22 05:08 Baso # (Auto) 0.0 X10^3/uL (0.0-0.1) 02/08/22 05:08 Absolute Nucleated RBC 0.0 /100WBC 02/08/22 05:08 Total Counted Cancelled 02/07/22 05:20 Neutrophils % (Manual) Cancelled 02/07/22 05:20 Band Neutrophils % Cancelled 02/07/22 05:20 Lymphocytes % (Manual) Cancelled 02/07/22 05:20 Monocytes % (Manual) Cancelled 02/07/22 05:20 Eosinophils % (Manual) Cancelled 02/07/22 05:20 Basophils % (Manual) Cancelled 02/07/22 05:20 Metamyelocytes % Cancelled 02/07/22 05:20 Myelocytes % Cancelled 02/07/22 05:20 Promyelocytes % Cancelled 02/07/22 05:20 Nucleated RBCs Cancelled 02/07/22 05:20 Atypical Lymphocytes Cancelled 02/07/22 05:20 Blast Cells Cancelled 02/07/22 05:20 Smudge Cells Cancelled 02/07/22 05:20 Toxic Granulation Cancelled 02/07/22 05:20 Dohle Bodies Cancelled 02/07/22 05:20 Hilario Rods Cancelled 02/07/22 05:20 Plt Clumps, EDTA Cancelled 02/07/22 05:20 Giant Platelets Cancelled 02/07/22 05:20 Plt Morphology Comment Cancelled 02/07/22 05:20 RBC Morphology Cancelled 02/07/22 05:20 Dimorphic RBCs Cancelled 02/07/22 05:20 Polychromasia Cancelled 02/07/22 05:20 Hypochromasia Cancelled 02/07/22 05:20 Poikilocytosis Cancelled 02/07/22 05:20 Basophilic Stippling Cancelled 02/07/22 05:20 Anisocytosis Cancelled 02/07/22 05:20 Microcytosis Cancelled 02/07/22 05:20 Macrocytosis Cancelled 02/07/22 05:20 Spherocytes Cancelled 02/07/22 05:20 Pappenheimer Bodies Cancelled 02/07/22 05:20 Sickle Cells Cancelled 02/07/22 05:20 Target Cells Cancelled 02/07/22 05:20 Tear Drop Cells Cancelled 02/07/22 05:20 Ovalocytes Cancelled 02/07/22 05:20 Stomatocytes Cancelled 02/07/22 05:20 Helmet Cells Cancelled 02/07/22 05:20 [place] Bodies Cancelled 02/07/22 05:20 [place] Rings Cancelled 02/07/22 05:20 [place] Cells Cancelled 02/07/22 05:20 Crenated Cell Cancelled 02/07/22 05:20 Acanthocytes (Spur) Cancelled 02/07/22 05:20 Rouleaux Cancelled 02/07/22 05:20 Schistocytes Cancelled 02/07/22 05:20 ESR 67 MM/HOUR (0-15) H 02/05/22 23:00 Sodium 133 mmol/L (136-145) L 02/08/22 05:08 Corrected Sodium 136 mmol/L (136-145) 02/08/22 05:08 Potassium 3.8 mmol/L (3.5-5.1) 02/08/22 05:08 Chloride 101 mmol/L (98-107) 02/08/22 05:08 Carbon Dioxide 26.4 mmol/L (21-32) 02/08/22 05:08 BUN 13 mg/dL (7-18) 02/08/22 05:08 Creatinine 1.38 mg/dL (0.70-1.30) H 02/08/22 05:08 Est GFR (MDRD) Af Amer > 60 (>60) 02/08/22 05:08 Est GFR (MDRD) Non-Af 58 (>60) L 02/08/22 05:08 Glucose 240 mg/dL (65-99) H 02/08/22 05:08 POC Glucose (mg/dL) 195 mg/dL (65-99) H 02/08/22 05:20 Lactic Acid 1.3 mmol/L (0.4-2.0) 02/05/22 19:15 Calcium 8.5 mg/dL (8.5-10.1) 02/08/22 05:08 Corrected Calcium 10.2 mg/dL (8.5-10.1) H 02/08/22 05:08 Magnesium 2.1 mg/dL (1.7-2.9) 02/08/22 05:08 Total Bilirubin 0.30 mg/dL (0.2-1.0) 02/08/22 05:08 AST 44 Units/L (15-37) H 02/08/22 05:08 ALT 53 Units/L (12-78) 02/08/22 05:08 Alkaline Phosphatase 159 Units/L (46-116) H 02/08/22 05:08 C-Reactive Protein 243.10 mg/L (0-3.0) H 02/05/22 20:25 Total Protein 6.8 g/dL (6.4-8.2) 02/08/22 05:08 Albumin 1.9 g/dL (3.4-5.0) L 02/08/22 05:08 Globulin 4.9 g/dL (2.5-4.5) H 02/08/22 05:08 Albumin/Globulin Ratio 0.4 Ratio (1.1-2.1) L 02/08/22 05:08 Amylase 16 Units/L (25-115) L 02/05/22 16:49 Lipase 134 Units/L (73-393) 02/05/22 16:49 Specimen Type Clean catch urine 02/05/22 17:00 Urine Color Yellow (YELLOW) 02/05/22 17:00 Urine Appearance Slightly hazy (CLEAR) 02/05/22 17:00 Urine pH 6.0 (5.0 - 8.0) 02/05/22 17:00 Ur Specific [place] 1.015 (1.000-1.030) 02/05/22 17:00 Urine Protein 2+ (NEGATIVE) 02/05/22 17:00 Urine Glucose (UA) 4+ (NEGATIVE) 02/05/22 17:00 Urine Ketones 4+ (NEGATIVE) 02/05/22 17:00 Urine Blood Negative (NEGATIVE) 02/05/22 17:00 Urine Nitrite Negative (NEGATIVE) 02/05/22 17:00 Urine Bilirubin Negative (NEGATIVE) 02/05/22 17:00 Urine Urobilinogen Normal (NORMAL) 02/05/22 17:00 Ur Leukocyte Esterase Negative (NEGATIVE) 02/05/22 17:00 Urine RBC None seen /HPF (0-3) 02/05/22 17:00 Urine WBC 0-2 /HPF (0-5) 02/05/22 17:00 Ur Squamous Epith Cells Rare /HPF (NEGATIVE) 02/05/22 17:00 Urine Bacteria Negative /HPF (NEGATIVE) 02/05/22 17:00 Coarse Granular Casts Rare /HPF (NEGATIVE) 02/05/22 17:00 Urine Mucus Rare /HPF (NEGATIVE) 02/05/22 17:00 Ur Culture Indicated? No/not indicated 02/05/22 17:00 Urine Opiates Screen Negative (NEG=<300) 02/05/22 17:00 Urine Methadone Screen Negative (NEG=<300) 02/05/22 17:00 Ur Barbiturates Screen Negative (NEG=<200) 02/05/22 17:00 Ur Phencyclidine Scrn Negative (NEG=<25) 02/05/22 17:00 Ur Amphetamines Screen Negative (NEG=<1000) 02/05/22 17:00 U Benzodiazepines Scrn Negative (NEG=<200) 02/05/22 17:00 Urine Cocaine Screen Negative (NEG=<300) 02/05/22 17:00 U Marijuana (THC) Screen Negative (NEG=<50) 02/05/22 17:00 Acetone, Semi-Quant Small (NEGATIVE) H 02/05/22 16:49 SARS-CoV-2 (PCR) Negative (NEGATIVE) 02/05/22 22:24 Influenza Type A (PCR) Negative (NEGATIVE) 02/05/22 22:24 Influenza Type B (PCR) Negative (NEGATIVE) 02/05/22 22:24 RSV (PCR) Negative (NEGATIVE) 02/05/22 22:24 Plan (1) Hyperglycemia: Status: Acute (2) Dehydration: Status: Acute (3) Leucocytosis: Status: Acute (4) Splenic disorder: Status: Acute (5) Decreased oral intake: Status: Acute (6) Intractable nausea and vomiting: Status: Acute (7) Uncontrolled diabetes mellitus: Status: Acute (8) HTN (hypertension): Status: Acute (9) Pneumonia: Status: Acute
[2022-02-08] MEDS ORDERED: TORADOL 30 MG VIAL IVP PRN (12:49)
[2022-02-08] MEDS: SNACK - Diabetic Appropriate PO SCH (19:00)
[2022-02-08] MEDS ORDERED: ATIVAN TAB 0.5 MG PO PRN (19:52)
[2022-02-08] MEDS ORDERED: LANTUS SC SCH (21:00)
[2022-02-09] MEDS: DILAUDID INJ IVP PRN ×2 (01:35→04:45)
[2022-02-09] MEDS: ZOSYN VIAL 3.375 GRAMS 3.375 G in NS 100 ML IV 100 ML IV SCH (05:01)
[2022-02-09] MEDS: DUONEB 0.5 MG/3 MG (3 mL) NEB SCH (05:15)
[2022-02-09] MEDS: NS 1,000 ML IV 1,000 ML IV SCH (06:01)
[2022-02-09 06:12] LABS: BASOPHILS # (AUTO) 0.1 X10^3/uL (0.0-0.1); BASOPHILS % (AUTO) 0.6 % (0.2-1.0); EOSINOPHILS # (AUTO) 0.2 x10^3/uL (0.0-0.2); EOSINOPHILS % (AUTO) 1.8 % (0.9-2.9); HEMATOCRIT 33.6 % (42.0-54.0); HEMOGLOBIN 11.3 g/dL (13.5-18.0); LYMPHOCYTES # (AUTO) 1.5 X10^3/uL (1.3-2.9); LYMPHOCYTES % (AUTO) 12.7 % (21.0-51.0); MEAN CORPUSCULAR HEMOGLOBIN 28.8 pg (27.0-34.0); MEAN CORPUSCULAR HGB CONC 33.5 g/dL (33.0-35.0); MEAN CORPUSCULAR VOLUME 85.8 fL (80.0-100.0); MEAN PLATELET VOLUME 7.5 fL (7.4-11.0); MONOCYTES # (AUTO) 1.8 x10^3/uL (0.3-0.8); MONOCYTES % (AUTO) 15.5 % (0.0-13.0); NEUTROPHILS % (AUTO) 69.4 % (42.0-75.0); RED BLOOD COUNT 3.91 X10^6/uL (4.7-6.0); RED CELL DISTRIBUTION WIDTH 14.5 % (11.6-16.5); WHITE BLOOD COUNT 11.6 X10^3/uL (3.6-10.0)
[2022-02-09 06:23] LABS: ALANINE AMINOTRANSFERASE 42 Units/L (12-78); ALBUMIN 1.8 g/dL (3.4-5.0); ALKALINE PHOSPHATASE 120 Units/L (46-116); ASPARTATE AMINO TRANSFERASE 25 Units/L (15-37); BLOOD UREA NITROGEN 7 mg/dL (7-18); CALCIUM 8.2 mg/dL (8.5-10.1); CARBON DIOXIDE 28.1 mmol/L (21-32); CHLORIDE 102 mmol/L (98-107); COR NA(FOR HYPERGLY) 138 mmol/L (136-145); CREATININE 1.02 mg/dL (0.70-1.30); SODIUM 137 mmol/L (136-145); TOTAL PROTEIN 5.8 g/dL (6.4-8.2); eGFR NON BLACK RACES > 60 (>60)
[2022-02-09] MEDS: MORPHINE SULFATE INJ 4 MG IVP PRN (06:52)
--- NOTE | 2022-02-09 07:24 | CT ---
HISTORYr/o abcess, leukocytosisSTUDYABDOMEN/PELVIS WITH CONCOMPARISONCT abdomen and pelvis 02/06/2022.TECHNIQUEMultiple axial images of the abdomen and pelvis were obtained from the lung bases to the pubic symphysis after the administration of IV contrast. Dose reduction techniques including Automated Exposure Control (AEC) and adjustment of mA and kV were utilized.FINDINGSThere is a small left pleural effusion with associated opacity likely atelectasis. The right lung appears clear. The heart is normal in size. Suspect hepatic steatosis. The gallbladder, common duct, pancreas, adrenal glands, and kidneys have a benign appearance. Excretion of contrast into the collecting system limits evaluation for calculus detection. No hydronephrosis. The spleen has a large low-attenuation area with surrounding fat stranding. The low-attenuation area measures approximately 13.6 cm AP x 7.5 cm medial-lateral by 16.6 cm craniocaudal image 28 series 6 and image 54 series 8. This is similar to recent prior. Urinary bladder appears benign. The prostate is normal in size. Diverticulosis of the colon without evidence of diverticulitis. The appendix appears normal. Negative for bowel obstruction. Mildly atherosclerotic normal caliber abdominal aorta. No significant ascites. No free air. No pathologic adenopathy. No acute osseous abnormality.IMPRESSIONSimilar size of low-attenuation area which could represent sequela of infarct, hematoma, or abscess. Small left pleural effusion with associated opacity likely atelectasis.Electronically signed by: Leroy Wang (Feb 09, 2022 07:23:24)
--- NOTE | 2022-02-09 07:56 | RAD ---
HISTORYAbdominal painSTUDYKUBCOMPARISONCT abdomen pelvis 02/09/2022FINDINGSThe abdominal gas pattern is nonspecific and nonobstructive. No abnormal masses or abnormal calcifications are identified. There is residual contrast within the urinary tracts from recent CT. Regional skeleton is intact.IMPRESSIONUnremarkable KUBElectronically signed by: LORA DIEZ (Feb 09, 2022 07:54:53)
[2022-02-09] MEDS: NICOTINE PATCH TD SCH (08:00)
[2022-02-09] MEDS: PROTONIX INJ 40 MG VIAL IVP SCH (08:00)
[2022-02-09] MEDS: AMARYL TAB 4 MG PO SCH (08:01)
[2022-02-09] MEDS: FLOMAX PO SCH (08:01)
[2022-02-09 09:46] VITALS: BP 137/86
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
[2022-02-10 06:06] LABS: EPSTEIN-BARR VCA IGM <10.0 U/mL (0.0-43.9)
== END 2022-02-09 10:32 | disposition left against medical advice (07) | DRG 814 ==
LOC: ER 16:29 → MED/SURG 23:00
PROVIDERS: ADMIT Internal Medicine; ATTEND Internal Medicine
DX: M54.59 Other low back pain; R11.2 Nausea with vomiting, unspecified; J18.8 Other pneumonia, unspecified organism; Z53.29 Procedure and treatment not carried out because of patient's decision for other reasons; E11.65 Type 2 diabetes mellitus with hyperglycemia; E86.0 Dehydration; Z20.822 Contact with and (suspected) exposure to COVID-19; R06.02 Shortness of breath; D73.5 Infarction of spleen; R70.0 Elevated erythrocyte sedimentation rate; R63.8 Other symptoms and signs concerning food and fluid intake; R79.82 Elevated C-reactive protein (CRP); I10 Essential (primary) hypertension